=== PATIENT | male | born 1940 | race Caucasian/White ===

== ENCOUNTER → 2017-05-28 09:35 | Outpatient (CLI) | payer MEDICARE, OTHER, SELFPAY ==
[2017-05-28 13:35] LABS: ALB/GLOB Ratio 1.1 RATIO (0.9-2.4); AST(SGOT) 20 U/L (15-37); Alanine Aminotransfer ALT/SGPT 30 U/L (16-61); Albumin, Serum 3.6 g/dL (3.2-5.0); Alkaline Phosphatase 59 U/L (45-117); Anion Gap 8 (5-15); BUN 14 mg/dL (7-18); BUN/Creat Ratio 16.6 RATIO (10-20); Calcium,Total 8.7 mg/dL (8.5-10.1); Chloride 110 mmol/L (98-107); Creatinine, Serum 0.84 mg/dL (0.70-1.30); EST Glomerular Filtration Rate 95 mL/min (>60); Est Glom Filt Rate - Afr Amer 114 mL/min (>60); Globulin 3.3 g/dL (2.2-4.2); Glucose 147 mg/dL (74-106); Potassium 4.1 mmol/L (3.5-5.1); Protein, Total 6.9 g/dL (6.4-8.2); Sodium Level 145 mmol/L (136-145); Thyroid Stim Hormone (TSH) 1.59 uIU/mL (0.358-3.74)
[2017-05-28 14:29] LABS: Basophil% 0.8 % (0-1); Differential Indicated SCAN CRITERIA MET; Eosinophils% 2.2 % (0-5); Hematocrit 40.2 % (40-54); Hemoglobin 12.4 g/dl (13.0-16.5); Lymphocyte % 24.6 % (19-41); Mean Corp Hgb Conc 30.8 g/gl (32-36); Mean Corpuscular Volume 87.6 fL (80-94); Monocyte% 9.6 % (0-10); Neutrophil % 62.7 % (47-70); POSITIVE COUNT NO; POSITIVE DIFFERENTIAL NO; POSITIVE MORPHOLOGY YES; Platelet Count 306 K/mm3 (150-450); RBC Distribution Width CV 16.6 % (11.6-14.6); RBC Distribution Width SD 53.5 fl (35.1-43.9); Red Blood Count 4.59 M/mm3 (4.6-6.2); White Blood Count 10.5 K/mm3 (4.4-11.0)
[2017-05-28 14:30] LABS: Absolute Lymphocyte Count 2.58 X10^3/ul (0.83-4.51); Absolute Neutrophil Count 6.6 X10^3/uL (2.0-7.7); Acanthocytes 2+; Basophil# 0.08 X10^3/uL; Eosinophil# 0.22 X10^3/uL; Lymphocyte # 2.58 X10^3/ul (4.0); Monocyte# 1.01 X10^3/uL; Neutrophil # 6.58 X10^3/uL (2.7-7.7); Platelet Estimate ADEQUATE (ADEQ); Platelet Morphology LARGE
== END ==
PROVIDERS: Family Provider Family Medicine Geriatric Medicine; PCP Family Medicine Geriatric Medicine; Visit Provider Family Medicine Geriatric Medicine
DX: E11.9 Type 2 diabetes mellitus without complications (principal); I10 Essential (primary) hypertension; E55.9 Vitamin D deficiency, unspecified
CPT/HCPCS: 36415; 80053; 82306; 84443; 85025

== ENCOUNTER → 2017-12-11 12:09 | Outpatient (CLI) | payer MEDICARE, OTHER, SELFPAY ==
[2017-12-11 13:01] LABS: Vitamin D,25 Hydroxy 23.1 ng/mL (29.95-100.01)
[2017-12-11 13:05] LABS: ALB/GLOB Ratio 1.1 RATIO (0.9-2.4); AST(SGOT) 20 U/L (15-37); Alanine Aminotransfer ALT/SGPT 32 U/L (16-61); Albumin, Serum 3.6 g/dL (3.2-5.0); Alkaline Phosphatase 59 U/L (45-117); Anion Gap 11 (5-15); BUN 15 mg/dL (7-18); BUN/Creat Ratio 13.4 RATIO (10-20); Calcium,Total 8.8 mg/dL (8.5-10.1); Chloride 106 mmol/L (98-107); Creatinine, Serum 1.12 mg/dL (0.70-1.30); EST Glomerular Filtration Rate 68 mL/min (>60); Est Glom Filt Rate - Afr Amer 82 mL/min (>60); Globulin 3.4 g/dL (2.2-4.2); Glucose 156 mg/dL (74-106); Potassium 4.2 mmol/L (3.5-5.1); Sodium Level 145 mmol/L (136-145); Thyroid Stim Hormone (TSH) 2.37 uIU/mL (0.358-3.74)
[2017-12-11 14:02] LABS: Absolute Lymphocyte Count 1.84 X10^3/ul (0.83-4.51); Absolute Neutrophil Count 4.4 X10^3/uL (2.0-7.7); Basophil# 0.12 X10^3/uL; Basophil% 1.6 % (0-1); Eosinophil# 0.54 X10^3/uL; Hematocrit 39.3 % (40-54); Hemoglobin 12.4 g/dl (13.0-16.5); Lymphocyte # 1.84 X10^3/ul (4.0); Mean Corp Hgb Conc 31.6 g/gl (32-36); Mean Corpuscular Hgb 27.4 pg (27.0-32.0); Mean Corpuscular Volume 86.8 fL (80-94); Monocyte# 0.77 X10^3/uL; Neutrophil # 4.39 X10^3/uL (2.7-7.7); Neutrophil % 57.3 % (47-70); Platelet Count 316 K/mm3 (150-450); RBC Distribution Width CV 15.2 % (11.6-14.6); RBC Distribution Width SD 48.7 fl (35.1-43.9); Red Blood Count 4.53 M/mm3 (4.6-6.2); White Blood Count 7.7 K/mm3 (4.4-11.0)
[2017-12-11 14:03] LABS: Differential Indicated SCAN CRITERIA MET; POSITIVE COUNT NO; POSITIVE DIFFERENTIAL NO; POSITIVE MORPHOLOGY YES
[2017-12-11 14:04] LABS: Acanthocytes 3+; Ovalocyte RARE; Schistocytes 1+
[2017-12-12 12:34] LABS: Pathologist Review Reviewed
== END ==
PROVIDERS: Family Provider Family Medicine Geriatric Medicine; PCP Family Medicine Geriatric Medicine; Visit Provider Family Medicine Geriatric Medicine
DX: E11.9 Type 2 diabetes mellitus without complications (principal); I10 Essential (primary) hypertension; E55.9 Vitamin D deficiency, unspecified
CPT/HCPCS: 36415; 80053; 82306; 84443; 85025

== ENCOUNTER → 2018-06-13 08:59 | Outpatient (CLI) | payer MEDICARE, OTHER, SELFPAY ==
[2018-06-13 13:36] LABS: Absolute Neutrophil Count 4.8 X10^3/uL (2.0-7.7); Basophil% 1.3 % (0-1); Eosinophil# 0.38 X10^3/uL; Eosinophils% 5.1 % (0-5); Hematocrit 37.3 % (40-54); Hemoglobin 11.5 g/dl (13.0-16.5); Lymphocyte % 21.6 % (19-41); Mean Corp Hgb Conc 30.8 g/gl (32-36); Mean Corpuscular Hgb 25.7 pg (27.0-32.0); Mean Corpuscular Volume 83.4 fL (80-94); Mean Platelet Vol. 13.1 fl (6.2-12.0); Monocyte# 0.51 X10^3/uL; Monocyte% 6.9 % (0-10); Neutrophil # 4.82 X10^3/uL (2.7-7.7); Neutrophil % 65.1 % (47-70); Platelet Count 270 K/mm3 (150-450); RBC Distribution Width CV 16.1 % (11.6-14.6); Red Blood Count 4.47 M/mm3 (4.6-6.2); White Blood Count 7.4 K/mm3 (4.4-11.0)
[2018-06-13 13:37] LABS: Differential Indicated SCAN CRITERIA MET; POSITIVE COUNT NO; POSITIVE DIFFERENTIAL NO; POSITIVE MORPHOLOGY YES
[2018-06-13 13:54] LABS: Vitamin D,25 Hydroxy 35.3 ng/mL (29.95-100.01)
[2018-06-13 14:08] LABS: AST(SGOT) 23 U/L (15-37); Alanine Aminotransfer ALT/SGPT 30 U/L (16-61); Albumin, Serum 3.5 g/dL (3.2-5.0); Alkaline Phosphatase 63 U/L (45-117); Anion Gap 7 (5-15); BUN 15 mg/dL (7-18); BUN/Creat Ratio 15.2 RATIO (10-20); Calcium,Total 8.4 mg/dL (8.5-10.1); Chloride 107 mmol/L (98-107); Creatinine, Serum 0.99 mg/dL (0.70-1.30); EST Glomerular Filtration Rate 78 mL/min (>60); Est Glom Filt Rate - Afr Amer 95 mL/min (>60); Globulin 3.4 g/dL (2.2-4.2); Glucose 156 mg/dL (74-106); Potassium 3.8 mmol/L (3.5-5.1); Protein, Total 6.9 g/dL (6.4-8.2); Sodium Level 140 mmol/L (136-145); Thyroid Stim Hormone (TSH) 1.61 uIU/mL (0.358-3.74)
[2018-06-16 14:41] LABS: Pathologist Review Reviewed
== END ==
PROVIDERS: Family Provider Family Medicine Geriatric Medicine; PCP Family Medicine Geriatric Medicine; Visit Provider Family Medicine Geriatric Medicine
DX: E11.9 Type 2 diabetes mellitus without complications (principal); E55.9 Vitamin D deficiency, unspecified; I10 Essential (primary) hypertension
CPT/HCPCS: 36415; 80053; 82306; 84443; 85025

== ENCOUNTER 2018-06-18 12:06 | Emergency (ER) | payer MEDICARE, OTHER, SELFPAY ==
[2018-06-18] VITALS (12 sets, daily range): BP systolic 123–173; BP diastolic 71–97; PULSE 105–141; RESP 12–29; TEMP 35.6–36.2; O2SAT 90–100; BMI 26.1
--- NOTE | 2018-06-18 12:10 | NURSING ---
NO OLD EKGS
--- NOTE | 2018-06-18 12:16 | EKG12_ITS ---
Test Reason : SOB Blood Pressure : / mmHG Vent. Rate : 128 BPM Atrial Rate : 127 BPM P-R Int : 000 ms QRS Dur : 116 ms QT Int : 306 ms P-R-T Axes : 000 013 203 degrees QTc Int : 446 ms Atrial fibrillation with rapid ventricular response with premature ventricular or aberrantly conducte d complexes Incomplete left bundle branch block Marked ST abnormality, possible inferior subendocardial injury Abnormal ECG Confirmed by TAVON HAMILTON, EDWIN ([id number]), material expeditor LEONARDO BACA ([id number]) on 06/19/2018 1:10:49 PM Referred By: MANNY Confirmed By:EDWIN MONTES DE OCA MD
--- NOTE | 2018-06-18 12:16 | RAD_ITS ---
STUDY: X-RAY CHEST REASON FOR EXAM: Male, 78 years old. Patient was found unresponsive. TECHNIQUE: Single AP portable view of the chest. COMPARISON: Comparison is made with prior study dated December 01, 2014. FINDINGS: An endotracheal tube is in situ. The tip is at 3.7 cm proximal to the patrick. An orogastric tube is seen with the tip below the left hemidiaphragm. EKG electrodes are seen. Airspace disease is seen in the left hemithorax with the focal airspace disease in the right perihilar regions. This is suggestive of asymmetrical pulmonary edema. There is no demonstrated pleural abnormality. There is moderate cardiac enlargement. Normal mediastinum and casa. Normal visualized pulmonary arteries. There is atherosclerotic calcification of the aortic arch with tortuosity. There are diffuse degenerative changes of the visualized thoracic spine. Normal visualized ribs, clavicles, and shoulders. There is no demonstrated abnormality of the visualized soft tissue structures of the upper abdomen. RAD/Chest 1 View (Portable) IMPRESSION: Findings suggestive of asymmetrical pulmonary edema. The tip of the endotracheal tube is at 3.7 cm proximal to the patrick. Electronically Signed: Jasper Smith, at 12:58 EDT , Service support ,
--- NOTE | 2018-06-18 12:16 | CT_ITS ---
STUDY: CT BRAIN WITHOUT CONTRAST REASON FOR EXAM: Male, 78 years old. Mental status changes. History of remote cerebral aneurysm. RADIATION DOSAGE (If Supplied By Facility): CTDIvol = ( 60.81 ) mGy, DLP = ( 1067.08 ) mGycm TECHNIQUE: Transaxial CT imaging of the brain was performed without administration of intravenous contrast material. Individualized dose optimization techniques were used for this CT. COMPARISON: No relevant priors. FINDINGS: Normal soft tissue structures. Prior right frontoparietal craniotomy. Normal size ventricles and extra-axial spaces for the patient's age. There is evidence of encephalomalacia along the inferior aspect of the left and right frontal lobes worse on the left side. Streak artifact from a vascular aneurysmal clip is seen in the right side of the [place] with the dense calcific material most likely similar to prior surgery. There is evidence of a cavum septum pellucidum. Normal basal ganglia and thalami. Normal brainstem. Normal cerebellum. There is no intracranial hemorrhage. There are no findings of an acute ischemic infarction. Normal visualized paranasal sinuses. CT/Brain/Head without Contrast IMPRESSION: Status post aneurysmal clipping along the right side of the [place] with resultant encephalomalacia along the base of both frontal lobes worse on the left side. Electronically Signed: Jasper Smith, at 13:30 EDT , Service support ,
[2018-06-18 12:21] LABS: Bedside Glucose 261 mg/dL (70-110)
[2018-06-18] MEDS: Etomidate 20 MG/10 ML Vial IV (12:26)
[2018-06-18] MEDS: Rocuronium Bromide 50 MG/5 ML Vial 80 MG IV (12:30)
[2018-06-18] MEDS: 0.9% Normal Saline 1,000 ML 150 ML IV (12:31)
[2018-06-18] MEDS: LORazepam 2 MG/ML Syringe IV (12:35)
[2018-06-18 13:03] LABS: Absolute Lymphocyte Count 1.64 X10^3/ul (0.83-4.51); Absolute Neutrophil Count 21.5 X10^3/uL (2.0-7.7); Basophil# 0.09 X10^3/uL; Basophil% 0.4 % (0-1); Hematocrit 42.4 % (40-54); International Normalized Ratio 1.1; Lymphocyte # 1.64 X10^3/ul (4.0); Lymphocyte % 6.4 % (19-41); Mean Corp Hgb Conc 30.7 g/gl (32-36); Mean Corpuscular Hgb 26.1 pg (27.0-32.0); Mean Corpuscular Volume 85.1 fL (80-94); Monocyte# 2.25 X10^3/uL; Monocyte% 8.8 % (0-10); Neutrophil # 21.47 X10^3/uL (2.7-7.7); Neutrophil % 84.2 % (47-70); Platelet Count 346 K/mm3 (150-450); RBC Distribution Width CV 16.4 % (11.6-14.6); RBC Distribution Width SD 51.6 fl (35.1-43.9); Red Blood Count 4.98 M/mm3 (4.6-6.2); White Blood Count 25.5 K/mm3 (4.4-11.0)
[2018-06-18 13:04] LABS: Partial Thromboplast Time 23.5 Seconds (24.1-36.2)
[2018-06-18 13:05] LABS: POSITIVE COUNT NO; POSITIVE DIFFERENTIAL YES
[2018-06-18 13:06] LABS: Differential Indicated SCAN CRITERIA MET; POSITIVE MORPHOLOGY YES
[2018-06-18 13:07] LABS: Absolute Nucleated RBC Count 0.02 10^3/uL (0-5); NRBC Flagged by Analyzer 0.1 % (0-5)
[2018-06-18 13:18] LABS: Lactic Acid 10.4 mmol/L (0.4-2.0)
[2018-06-18 13:22] LABS: AST(SGOT) 31 U/L (15-37); Alanine Aminotransfer ALT/SGPT 31 U/L (16-61); Albumin, Serum 3.7 g/dL (3.2-5.0); Alkaline Phosphatase 72 U/L (45-117); Anion Gap 17 (5-15); BUN 16 mg/dL (7-18); BUN/Creat Ratio 11.9 RATIO (10-20); Bilirubin, Direct 0.22 mg/dL (0.00-0.30); Calcium,Total 8.5 mg/dL (8.5-10.1); Chloride 105 mmol/L (98-107); Creatinine, Serum 1.34 mg/dL (0.70-1.30); EST Glomerular Filtration Rate 55 mL/min (>60); Est Glom Filt Rate - Afr Amer 67 mL/min (>60); Globulin 3.7 g/dL (2.2-4.2); Glucose 259 mg/dL (74-106); Lipase 72 U/L (73-393); Potassium 3.4 mmol/L (3.5-5.1); Protein, Total 7.4 g/dL (6.4-8.2); Sodium Level 140 mmol/L (136-145)
[2018-06-18 13:26] LABS: Acanthocytes 2+; Platelet Estimate ADEQUATE (ADEQ); Schistocytes 1+
[2018-06-18 13:27] LABS: Anisocytosis 2+
[2018-06-18] MEDS: 0.9% Normal Saline 1,000 ML 1000 ML IV ×2 (13:35→14:29)
--- NOTE | 2018-06-18 13:42 | CT_ITS ---
STUDY: CTA OF THE BRAIN REASON FOR EXAM: Male, 78 years old. History of CVA. Prior aneurysmal clipping. RADIATION DOSAGE (If Supplied By Facility): CTDIvol = ( 28.48 ) mGy, DLP = ( 782.92 ) mGycm TECHNIQUE: CT angiography was performed with a multi-detector CT scanner. Data acquisition was obtained from the skull base through the vertex following intravenous administration of 100 IV Isovue 370. MIP images were reconstructed from the axial data set. Post-processing of the angiographic images was performed, with multiplanar reformation and 3D reconstruction. Individualized dose optimization techniques were used for this CT. COMPARISON: None. FINDINGS: The patient is status post right frontoparietal craniotomy. Normal bilateral petrous carotid arteries. There is calcified plaque formation of the right cavernous carotid artery, without a cross-sectional luminal stenosis. There is calcified plaque formation of the left cavernous carotid artery, without a cross-sectional luminal stenosis. 2 aneurysmal clips are seen in the right anterior aspect of the [place]. This is in the region of the right anterior communicating artery. There is non-visualization of the right A1 segment of the anterior cerebral arteries consistent with either aplastic development or an occlusion. Normal left A1 segments of the anterior cerebral artery. There is non-visualization of the anterior communicating artery (ACOM). Normal bilateral A2 segments of the anterior cerebral arteries. There is abrupt occlusion of the right middle cerebral artery just distal to its origin with poor visualization of the branches of the sylvian fissure. There is irregularity and narrowing of the left middle cerebral artery suggestive of atherosclerotic changes. Normal right posterior communicating artery (PCOM). Normal left posterior communicating artery (PCOM). Normal bilateral vertebral arteries. Normal basilar artery with a normal basilar bifurcation. The visualized bilateral superior cerebellar (SCA) arteries are normal. Normal bilateral P1, P2 and visualized P3 segments of the posterior cerebral arteries. There is no demonstrated aneurysm of the [place]. 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 Irregularity and narrowing of the left middle cerebral artery suggestive of atherosclerotic changes. Electronically Signed: Jasper Smith, at 15:01 EDT , Service support , STUDY: CTA NECK WITH CONTRAST REASON FOR EXAM: Male, 78 years old. CVA. RADIATION DOSAGE (If Supplied By Facility): CTDIvol = ( 28.48 ) mGy, DLP = ( 782.92 ) mGycm TECHNIQUE: CT angiography with multi-detector data acquisition was performed from the aortic arch to the skull base following intravenous administration of 100 IV Isovue 370. MIP images were reconstructed from the axial data set. Post-processing of the angiographic images was performed, with multiplanar reformation and 3D reconstruction. Individualized dose optimization techniques were used for this CT. COMPARISON: None. FINDINGS: An endotracheal tube is seen within the trachea. Airspace disease in both upper lobes worse on the left side. AORTIC ARCH: There is atherosclerotic calcific plaque formation of the aortic arch and great vessels arising from the aortic arch, without a hemodynamically significant stenosis. There is a bovine origin of the great vessels with a common origin of the brachiocephalic and left common carotid artery. Normal origin of the left subclavian artery. RIGHT CAROTID ARTERIES: Normal right common carotid artery (CCA). Normal right common carotid bulb. There is extensive atherosclerotic plaque formation of the origin of the right internal carotid artery with an estimated stenosis of greater than 70%. Normal visualized cervical portion of the right internal carotid artery. Normal origin of the right external carotid artery (ECA). LEFT CAROTID ARTERIES: Normal left common carotid artery (CCA). Normal left common carotid bulb. There is mild atherosclerotic plaque formation of the origin of the left internal carotid artery with less than 50% cross sectional diameter stenosis. Normal visualized cervical portion of the left internal carotid artery. Normal origin of the left external carotid artery (ECA). VERTEBRAL ARTERIES: Normal bilateral vertebral arteries. 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 Electronically Signed: Jasper Smith, at 15:03 EDT , Service support ,
--- NOTE | 2018-06-18 13:42 | CT_ITS ---
STUDY: CTA OF THE BRAIN REASON FOR EXAM: Male, 78 years old. History of CVA. Prior aneurysmal clipping. RADIATION DOSAGE (If Supplied By Facility): CTDIvol = ( 28.48 ) mGy, DLP = ( 782.92 ) mGycm TECHNIQUE: CT angiography was performed with a multi-detector CT scanner. Data acquisition was obtained from the skull base through the vertex following intravenous administration of 100 IV Isovue 370. MIP images were reconstructed from the axial data set. Post-processing of the angiographic images was performed, with multiplanar reformation and 3D reconstruction. Individualized dose optimization techniques were used for this CT. COMPARISON: None. FINDINGS: The patient is status post right frontoparietal craniotomy. Normal bilateral petrous carotid arteries. There is calcified plaque formation of the right cavernous carotid artery, without a cross-sectional luminal stenosis. There is calcified plaque formation of the left cavernous carotid artery, without a cross-sectional luminal stenosis. 2 aneurysmal clips are seen in the right anterior aspect of the [place]. This is in the region of the right anterior communicating artery. There is non-visualization of the right A1 segment of the anterior cerebral arteries consistent with either aplastic development or an occlusion. Normal left A1 segments of the anterior cerebral artery. There is non-visualization of the anterior communicating artery (ACOM). Normal bilateral A2 segments of the anterior cerebral arteries. There is abrupt occlusion of the right middle cerebral artery just distal to its origin with poor visualization of the branches of the sylvian fissure. There is irregularity and narrowing of the left middle cerebral artery suggestive of atherosclerotic changes. Normal right posterior communicating artery (PCOM). Normal left posterior communicating artery (PCOM). Normal bilateral vertebral arteries. Normal basilar artery with a normal basilar bifurcation. The visualized bilateral superior cerebellar (SCA) arteries are normal. Normal bilateral P1, P2 and visualized P3 segments of the posterior cerebral arteries. There is no demonstrated aneurysm of the [place]. 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 Irregularity and narrowing of the left middle cerebral artery suggestive of atherosclerotic changes. Electronically Signed: Jasper Smith, at 15:01 EDT , Service support , STUDY: CTA NECK WITH CONTRAST REASON FOR EXAM: Male, 78 years old. CVA. RADIATION DOSAGE (If Supplied By Facility): CTDIvol = ( 28.48 ) mGy, DLP = ( 782.92 ) mGycm TECHNIQUE: CT angiography with multi-detector data acquisition was performed from the aortic arch to the skull base following intravenous administration of 100 IV Isovue 370. MIP images were reconstructed from the axial data set. Post-processing of the angiographic images was performed, with multiplanar reformation and 3D reconstruction. Individualized dose optimization techniques were used for this CT. COMPARISON: None. FINDINGS: An endotracheal tube is seen within the trachea. Airspace disease in both upper lobes worse on the left side. AORTIC ARCH: There is atherosclerotic calcific plaque formation of the aortic arch and great vessels arising from the aortic arch, without a hemodynamically significant stenosis. There is a bovine origin of the great vessels with a common origin of the brachiocephalic and left common carotid artery. Normal origin of the left subclavian artery. RIGHT CAROTID ARTERIES: Normal right common carotid artery (CCA). Normal right common carotid bulb. There is extensive atherosclerotic plaque formation of the origin of the right internal carotid artery with an estimated stenosis of greater than 70%. Normal visualized cervical portion of the right internal carotid artery. Normal origin of the right external carotid artery (ECA). LEFT CAROTID ARTERIES: Normal left common carotid artery (CCA). Normal left common carotid bulb. There is mild atherosclerotic plaque formation of the origin of the left internal carotid artery with less than 50% cross sectional diameter stenosis. Normal visualized cervical portion of the left internal carotid artery. Normal origin of the left external carotid artery (ECA). VERTEBRAL ARTERIES: Normal bilateral vertebral arteries. 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 Electronically Signed: Jasper mSith, at 15:03 EDT , Service support ,
--- NOTE | 2018-06-18 13:44 | ED.RN ---
Addendum entered by Yin Sauceda 06/18/18 15:37: soft restraints placed on wrists but not secured or used. pt sedated and does not require Original Note: 1226-etomidate 1228 et tube 7.5 21 at lip good cap willis ls 1230 saw administered 1240 - og placed aus. and residual. 1245 trent placed. soft retraints to wrists
[2018-06-18 13:46] LABS: Allen Test POS; Base Excess -10 mmol/L (-2 to +2); Bicarbonate 19.7 mmol/L (22-26); Blood Gas Specimen Type ART; FI02 100; Mode A-C; O2 Delivery Device Vent; PEEP 5; PO2 183 mmHG (75-100); RR 12; SITE R Radial; SO2 99 % (95-99); Time Given 1330; Total Carbon Dioxide 22 mmol/L; Vt 450; pH 7.09 (7.35-7.45)
[2018-06-18 13:47] LABS: Color, Urine Yellow (Yellow); Glucose, Dipstick 250 mg/dl (Normal); Ketone-Dipstick 50 mg/dl (Negative); Leukocyte Esterase-Dipstick Negative /ul (Negative); Nitrite-Dipstick Negative (Negative); Occult Blood-Urine 25 /ul (Negative); Protein-Dipstick 30 mg/dl (Negative); Specific Gravity, Urine 1.025 (1.002-1.030); Urine Bilirubin Dipstick Negative (Negative); Urine Clarity Sl. Cloudy (Clear); Urine Urobilinogen Normal (Normal)
[2018-06-18 13:56] LABS: Bacteria RARE /hpf (None Seen); Hyaline Cast 0-5 SEEN /lpf (0-5); Mucous, Urine 1+ /hpf (<or=2+); Red Blood Cells-Urine 0-5 SEEN /hpf (0-5); Squamous Epithelial Cells - UA 5-10 SEEN /hpf (0-5); White Blood Cells 0-5 SEEN /hpf (0-5)
--- NOTE | 2018-06-18 14:28 | CPS ---
Critical results read to Steffany HAMILTON.
--- NOTE | 2018-06-18 14:40 | ED.VISSUMM ---
- ER Visit Summary Date of Service: 06/18/18 Chief Complaint: Weakness History of Present Illness: The patient is a 78 M brought in by EMS with weakness and respiratory distress. Per daughter patient has not been feeling well for the past several days. He went to bed around 11 PM last night. Daughter heard the patient up to the bathroom around 630 this morning. When he did not come down this morning she went to check on him and found him on the floor between his bed and nightstand. He arrives here shortly afternoon. Patient reported he has a history of diabetes, hypertension, and high cholesterol. He does have a cancer history and daughter states recent blood work showed that his red blood cells looked funny. He is to follow-up with engineer third assistant. Physical Examination: Blood pressure is 157/84, temperature 97.2, heart rate 105, respiratory rate 28, pulse ox 93% on nonrebreather. Patient is sitting upright in the bed. He is tachypneic. Heart rate is irregular and tachycardic. Lungs sounds with rhonchi throughout. Abdomen is soft nontender. Quick neuro exam reveals patient will moan to his name. His left arm is flaccid. He will pull back left leg pain. He will move right arm and right leg. Test Results: EKG is A. fib at [address] depression. Patient has no known history of A. fib. CT head shows that he is status post aneurysm clip along the right side of the [place]. There is encephalomalacia on the base of both frontal lobes, worse on the left. Chest x-ray shows large airspace disease in the left lung. ET tube is 3.7 cm proximal to the patrick. CBC was a white count of 25.5 with 84% neutrophils. Chemistry studies reveal potassium 3.4, bicarb 18, creatinine 1.34. Glucose is 259 and anion gap is 17. Lactic acid is 10.4. LFTs and lipase normal. Troponin is 0.333. Emergency Department Course and Treatment: Due to concern about patient not protecting airway, decision was made to electively intubate the patient shortly after his arrival. Family consented and stayed in the room during procedure. Patient was given 20 mg of etomidate. Cords were directly visualized with a 4 MAC blade. A 7.5 ET tube was passed. Good end-tidal CO2 changes noted. Lungs were suctioned with thick white sputum. once chest x-ray was visualized, patient was given Unasyn they believe this airspace disease is secondary to aspiration. Patient was given 30 cc/kg IV fluid bolus given his severe lactic acidosis. Patient was sent for CT head as well as CTA of the head and neck. I spoke with Dr. Robertson who was watching for his images. He reports a large proximal right M1 occlusion. He recommended transfer immediately for clot retrieval. This was discussed with family and they would like to go to [facility]. I spoke with Dr. Montanez from [facility]. Dr. Montanez spoke with the daughter on the phone. At this time they cannot ensure the aneurysm clips are safe for MRI, so patient will go to the ED at [facility] for repeat CT while they clarify whether they can take him to the MRI scanner. Helicopter has already launched. Family's been updated throughout. Treatment Plan: [] Disposition: Transfer Impression: 1. Acute right MCA infarct 2. New onset A. fib with RVR 3. Aspiration pneumonia 4. Sepsis 5. Respiratory failure Addendum: Prior to patient transfer, formal CTA reports did return. There is an abrupt cutoff in the right proximal M1 consistent with clot. There is also a proximal right ICA occlusion greater than 70%. This information was verbally relayed to the transfer team. This note was generated with [employer] dictation software. It may contain incorrect words, spelling, and punctuation that were not noted in review of the chart prior to signing ED Disposition - Plan for ED Patient: Referrals: Gerardo Fernandez Chi, MD [Primary Care Provider] -
--- NOTE | 2018-06-18 14:45 | NURSING ---
[facility]. ETA IS 25 MIN
--- NOTE | 2018-06-18 14:50 | ED.DCSUM_ITS ---
- ER Visit Summary Date of Service: 06/18/18 Chief Complaint: Weakness History of Present Illness: The patient is a 78 M brought in by EMS with weakness and respiratory distress. Per daughter patient has not been feeling well for the past several days. He went to bed around 11 PM last night. Daughter heard the patient up to the bathroom around 630 this morning. When he did not come down this morning she went to check on him and found him on the floor between his bed and nightstand. He arrives here shortly afternoon. Patient reported he has a history of diabetes, hypertension, and high cholesterol. He does have a cancer history and daughter states recent blood work showed that his red blood cells looked funny. He is to follow-up with hot metal charger. Physical Examination: Blood pressure is 157/84, temperature 97.2, heart rate 105, respiratory rate 28, pulse ox 93% on nonrebreather. Patient is sitting upright in the bed. He is tachypneic. Heart rate is irregular and tachycardic. Lungs sounds with rhonchi throughout. Abdomen is soft nontender. Quick neuro exam reveals patient will moan to his name. His left arm is flaccid. He will pull back left leg pain. He will move right arm and right leg. Test Results: EKG is A. fib at [address] depression. Patient has no known history of A. fib. CT head shows that he is status post aneurysm clip along the right side of the [place]. There is encephalomalacia on the base of both frontal lobes, worse on the left. Chest x-ray shows large airspace disease in the left lung. ET tube is 3.7 cm proximal to the patrick. CBC was a white count of 25.5 with 84% neutrophils. Chemistry studies reveal potassium 3.4, bicarb 18, creatinine 1.34. Glucose is 259 and anion gap is 17. Lactic acid is 10.4. LFTs and lipase normal. Troponin is 0.333. Emergency Department Course and Treatment: Due to concern about patient not protecting airway, decision was made to electively intubate the patient shortly after his arrival. Family consented and stayed in the room during procedure. Patient was given 20 mg of etomidate. Cords were directly visualized with a 4 MAC blade. A 7.5 ET tube was passed. Good end-tidal CO2 changes noted. Lungs were suctioned with thick white sputum. once chest x-ray was visualized, patient was given Unasyn they believe this airspace disease is secondary to aspiration. Patient was given 30 cc/kg IV fluid bolus given his severe lactic acidosis. Patient was sent for CT head as well as CTA of the head and neck. I spoke with Dr. Robertson who was watching for his images. He reports a large proximal right M1 occlusion. He recommended transfer immediately for clot retrieval. This was discussed with family and they would like to go to [facility]. I spoke with Dr. Montanez from [facility]. Dr. Montanez spoke with the daughter on the phone. At this time they cannot ensure the aneurysm clips are safe for MRI, so patient will go to the ED at [facility] for repeat CT while they clarify whether they can take him to the MRI scanner. Helicopter has already launched. Family's been updated throughout. Treatment Plan: [] Disposition: Transfer Impression: 1. Acute right MCA infarct 2. New onset A. fib with RVR 3. Aspiration pneumonia 4. Sepsis 5. Respiratory failure Addendum: Prior to patient transfer, formal CTA reports did return. There is an abrupt cutoff in the right proximal M1 consistent with clot. There is also a proximal right ICA occlusion greater than 70%. This information was verbally r elayed to the transfer team. This note was generated with [employer] dictation software. It may contain incorrect words, spelling, and punctuation that were not noted in review of the chart prior to signing ED Disposition - Plan for ED Patient: Referrals: Gerardo Fernandez Chi, MD [Primary Care Provider] -
--- NOTE | 2018-06-18 15:52 | ED.RN ---
report to [facility] rn.
[2018-06-18 16:40] LABS: Reflex Lactate? Y
[2018-06-19 14:00] LABS: Pathologist Review Reviewed
== END 2018-06-18 15:34 | disposition short-term general hospital (02) ==
LOC: ED 13:27
PROVIDERS: Emergency Provider Emergency Medicine; Family Provider Family Medicine Geriatric Medicine; PCP Family Medicine Geriatric Medicine
DX: A41.9 Sepsis, unspecified organism (principal); I63.511 Cerebral infarction due to unspecified occlusion or stenosis of right middle cerebral artery; I48.91 Unspecified atrial fibrillation; J69.0 Pneumonitis due to inhalation of food and vomit; J96.90 Respiratory failure, unspecified, unspecified whether with hypoxia or hypercapnia; G93.89 Other specified disorders of brain; Z86.79 Personal history of other diseases of the circulatory system; E11.9 Type 2 diabetes mellitus without complications; I10 Essential (primary) hypertension; E78.00 Pure hypercholesterolemia, unspecified
CPT/HCPCS: 31500; 36600; 70450; 70496; 70498; 71045; 80048; 80076; 81001; 82803; 82962; 83605; 83690; 84484; 85025; 85610; 85730; 87040; 93005; 94002; 99251; 99285; J7030; Q9967; A4216; G0463; J0295

== ENCOUNTER 2018-07-07 18:10 | Inpatient (IN) | payer MEDICARE, OTHER, SELFPAY ==
[2018-06-18 12:08] VITALS: BMI 26.1
[2018-07-07 18:29] VITALS: BP 118/76; PULSE 81; RESP 26; TEMP 37.3; O2SAT 94; BMI 30.4; BMI 30.5
--- NOTE | 2018-07-07 18:29 | NURSING ---
Patient admitted to room 13 from [facility] via cot. Family at bedside. Patient is not responsive to verbal stimuli, responsive to physical/painful stimuli.
--- NOTE | 2018-07-07 21:00 | NURSING ---
Per Dr. Munguia, if bladder scan is >600ml, insert trent.
[2018-07-07] MEDS: Menthol/Lanolin/Calamine/Znox 113 GM Tube 1 APPLIC TOPICAL (21:15)
[2018-07-07] MEDS: NYSTATIN 500,000 UNIT/5 ML UDC 500000 UNIT PO (21:18)
[2018-07-07 21:30] VITALS: O2SAT 99
--- NOTE | 2018-07-07 21:38 | RAD_ITS ---
STUDY: X-RAY - ABDOMEN/PELVIS REASON FOR EXAM: Male, 78 years old. Tube placement TECHNIQUE: Single AP view of the abdomen / pelvis. COMPARISON: None. FINDINGS: There is an enteric tube noted with its tip in the stomach. There are multiple dilated loops of small and large bowel in the visualized abdomen. This may be due to ileus or obstruction and further evaluation with CT is recommended. The visualized osseous structures are within normal limits. RAD/Abdomen Single View (Portable) IMPRESSION: Enteric tube tip in the stomach. Dilated loops of small and large bowel in the visualized abdomen. This may be due to ileus or obstruction and further evaluation with CT is recommended. Electronically Signed: Mitchell Moore, at 22:08 EDT Tel , Service support ,
--- NOTE | 2018-07-07 22:30 | NURSING ---
Per policy, ordered KUB to verify placement of NG. Report read to Dr. Munguia, and new order to not administer anything through NG at this time. New order for KCl 20mEq in D5NS @ 100ml/hr and humalog-medium S.S. with blood sugar checks Q6H. Updated daughter in law, via phone call.
[2018-07-07 22:31] LABS: Bedside Glucose 85 mg/dL (70-110)
[2018-07-08 00:56] LABS: Bedside Glucose 95 mg/dL (70-110)
[2018-07-08] MEDS: Menthol/Lanolin/Calamine/Znox 113 GM Tube 1 APPLIC TOPICAL ×3 (05:42→19:51)
[2018-07-08] MEDS: Lidocaine 5% Patch 1 PATCH TOPICAL (05:42)
[2018-07-08] MEDS: Enoxaparin 40 MG/0.4 ML Syringe SC (05:43)
[2018-07-08] MEDS: NYSTATIN 500,000 UNIT/5 ML UDC 500000 UNIT PO ×4 (05:43→21:17)
[2018-07-08 06:00] VITALS: BP 165/43; PULSE 61; RESP 24; TEMP 36.8; O2SAT 100
[2018-07-08 06:10] LABS: Bedside Glucose 146 mg/dL (70-110)
[2018-07-08 06:24] LABS: Absolute Lymphocyte Count 1.72 X10^3/ul (0.83-4.51); Absolute Neutrophil Count 13.6 X10^3/uL (2.0-7.7); Basophil# 0.09 X10^3/uL; Basophil% 0.5 % (0-1); Eosinophils% 1.7 % (0-5); Hematocrit 36.8 % (40-54); Hemoglobin 11.3 g/dl (13.0-16.5); Lymphocyte # 1.72 X10^3/ul (4.0); Mean Corp Hgb Conc 30.7 g/gl (32-36); Mean Corpuscular Hgb 25.7 pg (27.0-32.0); Mean Corpuscular Volume 83.8 fL (80-94); Mean Platelet Vol. 13.2 fl (6.2-12.0); Monocyte# 1.38 X10^3/uL; Neutrophil # 13.64 X10^3/uL (2.7-7.7); Neutrophil % 79.6 % (47-70); Platelet Count 530 K/mm3 (150-450); RBC Distribution Width SD 53.6 fl (35.1-43.9); Red Blood Count 4.39 M/mm3 (4.6-6.2); White Blood Count 17.2 K/mm3 (4.4-11.0)
[2018-07-08 06:30] LABS: POSITIVE COUNT NO; POSITIVE DIFFERENTIAL NO; POSITIVE MORPHOLOGY NO
[2018-07-08 06:42] LABS: Anion Gap 2 (5-15); BUN 21 mg/dL (7-18); BUN/Creat Ratio 38.9 RATIO (10-20); Calcium,Total 8.1 mg/dL (8.5-10.1); Chloride 109 mmol/L (98-107); Creatinine, Serum 0.54 mg/dL (0.70-1.30); EST Glomerular Filtration Rate 157 mL/min (>60); Est Glom Filt Rate - Afr Amer 190 mL/min (>60); Estimated Creatinine Clearance 62.84 ml/min; Glucose 109 mg/dL (74-106); Potassium 4.3 mmol/L (3.5-5.1); Sodium Level 141 mmol/L (136-145)
[2018-07-08] MEDS: Tuberculin,Purif.prot.deriv. 50 TU/ML Vial 5 ML ID (08:56)
--- NOTE | 2018-07-08 10:37 | HP.PCM_ITS ---
Problem List (1) Chronic ischemic right MCA stroke Status: Chronic (2) Atrial fibrillation Status: Acute (3) H/O colon cancer, stage III Status: Acute (4) H/O malignant neoplasm of pancreas Status: Acute (5) HTN (hypertension) Status: Chronic (6) T2DM (type 2 diabetes mellitus) Status: Acute (7) Dysphagia following cerebral infarction Status: Acute (8) Chronic systolic CHF (congestive heart failure) Status: Chronic (9) Obesity (BMI 30.0-34.9) Status: Acute (10) Transaminitis Status: Acute History of Present Illness Date of Admission: 07/08/18 Chief Complaint: Debilitating and disabling right MCA stroke Patient unable to provide history and detail obtained from extensive review of medical records and chart from the [facility] The patient is a 78 year old M transferred from the [facility] main campus. Initially presented here on 06/18/18 with right MCA occlusive embolic stroke. Transferred to [facility] for possible embolectomy. Deemed not to be a candidate for any endovascular procedures and plan was to be managed conservatively. Hospital stay was complicated early on by development of severe cerebral edema with significant mass effect and early herniation. This necessitated a hemicraniectomy for surgical decompression and this seemed to improve things. Presentation also complicated early on by aspiration pneumonia, respiratory failure, and shock requiring pressors. Stroke complicated by dysphagia and dysphasia. Patient now completely dependent on total care. 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 Allergies No Known Allergies Allergy (Verified 06/18/18 12:14) Home Medications: Ambulatory Orders Medication Instructions Recorded Lisinopril [Zestril] 10 mg GT DAILY 12/06/14 Albuterol Aerosols [Ventolin 2.5 mg INHALATION Q4H PRN PRN 07/07/18 Aerosols] Apixaban [Eliquis] 5 mg GT BID 07/07/18 Aspir-Low 81 mg GT DAILY 07/07/18 Bisacodyl 10 mg RC DAILY PRN 07/07/18 Carvedilol 3.125 mg GT BID 07/07/18 Docusate Sodium [Stool Softener] 50 mg GT BID 07/07/18 Enoxaparin [Lovenox] 40 mg SC DAILY@0600 07/07/18 Insulin Glargine [Lantus (BKC)] 30 units SC DAILY 07/07/18 Lidocaine [Lidoderm Patch] 1 patch TOPICAL DAILY 07/07/18 Lisinopril [Prinivil] 10 mg PO 07/07/18 Melatonin/Pyridoxine HCl (B6) 2 each GT QHS 07/07/18 [Melatonin 3 mg Tablet] Nystatin 5 ml PO 4X/DAY 07/07/18 Polyethylene Glycol 3350 17 gm GT DAILY 07/07/18 Senna [Senokot] 1 tablet GT BID 07/07/18 Sodium Chloride For Inhalation 4 ml IH BID 07/07/18 [Sodium Chloride] Surgical History: cholecystectomy, colectomy, - - s/p clipping of anterior comm artery aneurysm 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 colectomy for stage III colon ca Lives: Alone, With Family Smoking Status: Current some day smoker Tobacco Use: Cigars, Chew, Pipe - *Family History Sibling Family History: Family History (Last Updated 07/08/18 @ 11:03 by Beatriz Munguia MD) Other Colon cancer Heart disease Review of Systems Eyes: Denies: Pain HEENT: Reports: Dysphasia Cardiovascular: Denies: Chest Pain Respiratory: Denies: Wheezing Gastrointestinal: Denies: Abdominal Pain Unable to obtain accurate/complete ROS d/t: due to dysphasia Comment: ROS limited by dysphasia VTE Information - Inpt Only VTE Present on Admission: Yes - lovenox VTE Mechan Device Prophylaxis: Thigh High DANILO Hose VTE Pharm Prophylaxis ordered?: Yes Patient Problems: Active and Suspected Problems Atrial fibrillation (Acute) H/O colon cancer, stage III (Acute) H/O malignant neoplasm of pancreas (Acute) T2DM (type 2 diabetes mellitus) (Acute) Dysphagia following cerebral infarction (Acute) Obesity (BMI 30.0-34.9) (Acute) Transaminitis (Acute) - Physical Exam General: Alert, Cooperative, No apparent distress, Disoriented, Lethargic HEENT: Atraumatic, PERRLA, EOMI, - - sutured and well healing craniotomy wound, no redness or drainage or malodor Oral: Dry Mucosa Neck: Supple Lungs: Clear to auscultation, Normal air movement, No rhonchi, No wheeze, No rales, Diminished - on the left, Periods of apnea - Rajat sol respiration Cardiovascular: Regular rate, Regular Rhythm, Normal S1, Normal S2, No murmurs, No Ectopic Activity Abdomen: - - abdomen distended in the upper half and tympanitic as well. Hyperactive bowel sounds. Non tender Extremities: No clubbing, No edema, - - muscle wasting especiallly on the left Skin: No rashes, - - stage I sacral decubitus Musculoskeletal: Muscle Wasting Lymphatic: No Cervical, Supraclavicular, or Inguinal Adenopathy Neurological: Facial Droop, Slurred Speech - hemiplegic on the left and increased tone. Moving the right spontaneously and purposefully Psych/Mental Status: Agitated, Impulsive, Restless Vital Signs Temp Pulse Resp BP Pulse Ox 98.2 F 61 24 H 165/43 H 100 07/08/18 06:00 07/08/18 06:00 07/08/18 06:00 07/08/18 06:00 07/08/18 06:00 Oxygen Delivery Method Room Air Weight: 93.6 kg Body Mass Index (BMI) 30.4 Finger Stick Blood Glucose 261 Laboratory Tests Past 24 Hrs 07/08/18 07/08/18 05:20 05:20 WBC 17.2 H RBC 4.39 L Hgb 11.3 L Hct 36.8 L MCV 83.8 MCH 25.7 L MCHC 30.7 L RDW 18.0 H RDW Differential 53.6 H Plt Count 530 H MPV 13.2 H Immature Gran % (Auto) 0.200 Neut % (Auto) 79.6 H Lymph % (Auto) 10.0 L [place] % (Auto) 8.0 Eos % (Auto) 1.7 Baso % (Auto) 0.5 Absolute Neuts (auto) 13.6 H Absolute Lymphs (auto) 1.72 Total Counted Not Reportable Sodium 141 Potassium 4.3 Chloride 109 H Carbon Dioxide 30.0 Anion Gap 2 L BUN 21 H Creatinine 0.54 L Estim Creat Clear Calc 62.84 Est GFR (MDRD) Af Amer 190 Est GFR (MDRD) Non-Af 157 BUN/Creatinine Ratio 38.9 H Glucose 109 H Calcium 8.1 L POC Glucose 07/08/18 07/08/18 07/07/18 06:00 00:49 22:28 POC Glucose 146 H 95 85 Assessment/Plan All Active Problems Atrial fibrillation (Acute) H/O colon cancer, stage III (Acute) H/O malignant neoplasm of pancreas (Acute) T2DM (type 2 diabetes mellitus) (Acute) Dysphagia following cerebral infarction (Acute) Obesity (BMI 30.0-34.9) (Acute) Transaminitis (Acute) 1. Acute embolic (cardioembolic) extensive/massive/debilitating and disabling right MCA stroke with dysphagia and dysphasia and left spastic hemiplegia. Will need extensive and prolonged post stroke rehab. 2. Colonic distention on AXR. Examination finding concordant. Will need to hold NGT feeds for now. CT abd/pelvis to r/o obstruction. 3. Dysphagia. Has corpak and this will be the primary means of nutrition for now. Speech therapy consulted and will continue swallowing evaluation and exercises. Hopefully this may improve and obviate the need for the Corpak 4. Aphasia. Speech therapy to treat as well 5. DVT prophylaxis. Continue with SQ Lovenox for now 6. HTN. Well controlled. Will continue with Lisinopril and Coreg 7. Atrial fibrillation. Cause of cardioembolic stroke. Eliquis to be started on 07/15/18. 8. T2DM. While npo will continue Lantus and ISS. On D5NS while NPO 9. Protein calorie malnutrition of moderate severity. Supplementation as prescribed 10. Obesity. Class I. 11. Wound care. To stage I sacral decubitus and right craniotomy wound. Will need Q2hr turning. 12. Chronic systolic CHF with EF of 37%. On BB and ACEI. Compensated at this time.
--- NOTE | 2018-07-08 12:51 | CASEMGMT ---
SW reviewed student social services counselor psychosocial assessment. MENDEZ Matamoros
--- NOTE | 2018-07-08 15:23 | NURSING ---
Talked with POMio, regarding CT results and new order for reglan. informed of palliative care consult. answered questions.
[2018-07-08 15:53] VITALS: BP 149/86; PULSE 73; RESP 30; TEMP 37.3; O2SAT 93
[2018-07-08 16:56] LABS: Bedside Glucose 115 mg/dL (70-110)
[2018-07-08] MEDS: Metoclopramide 10 MG/2 ML Vial IV ×2 (17:56→23:50)
[2018-07-08] MEDS: 0.9% NaCl Peripheral Flush Adult/Peds IV ×4 (21:17→23:55)
[2018-07-09 00:15] LABS: Bedside Glucose 73 mg/dL (70-110)
[2018-07-09 00:42] VITALS: BP 144/92; PULSE 118; RESP 26; TEMP 37; O2SAT 95
--- NOTE | 2018-07-09 00:43 | NURSING ---
Dr Munguia notified of vitals and blood sugar 73. Pt using accessory muscles to breath with periods of apnea. Per staff pt more difficult to arouse tonight vs last HS. N.O. place pt on 2L O2.
--- NOTE | 2018-07-09 01:41 | NURSING ---
Epstein catheter inserted at this time per order- bladder scan greater than 600cc. Pt tolerated procedure well. 700cc of clear, tea colored urine initially flowed into catheter bag, strong odor noted. Pt also noted to be moderately incontinent of urine. Upon changing pt, small smear of stool with blood noted to be in attends- hemorrhoids present. Will continue to monitor.
--- NOTE | 2018-07-09 06:00 | NURSING ---
In with patient this morning. Patient's eyes open, patient asked if he is in pain, patient states no. Patient then states I don't understand. This nurse explained to patient that he was in [facility]. Patient then went back to being unresponsive. Patient suctioned this time with lizzethker. Thick green mucous suctioned from patient's mouth. Patient given oral care at this time. Patient resting comfortably in bed at this time.
[2018-07-09] MEDS: Menthol/Lanolin/Calamine/Znox 113 GM Tube 1 APPLIC TOPICAL ×3 (06:04→21:07)
[2018-07-09] MEDS: Lidocaine 5% Patch 1 PATCH TOPICAL (06:05)
[2018-07-09] MEDS: Enoxaparin 40 MG/0.4 ML Syringe SC (06:06)
[2018-07-09] MEDS: NYSTATIN 500,000 UNIT/5 ML UDC 500000 UNIT PO ×4 (06:08→21:09)
[2018-07-09] MEDS: Metoclopramide 10 MG/2 ML Vial IV ×3 (06:13→16:57)
[2018-07-09] MEDS: 0.9% NaCl Peripheral Flush Adult/Peds IV ×3 (06:17→16:58)
[2018-07-09 06:41] VITALS: O2SAT 98
[2018-07-09 06:41] LABS: Bedside Glucose 106 mg/dL (70-110)
--- NOTE | 2018-07-09 09:17 | NURSING ---
Pt Blood sugar 106 this AM, Dr Munguia notified, wants pt to have lantus 30 units as ordered, ON IVF.
[2018-07-09 09:25] VITALS: O2SAT 97
[2018-07-09 11:05] VITALS: PULSE 87; O2SAT 95
--- NOTE | 2018-07-09 11:19 | NURSING ---
Pt repositioned to back, heels off bed, mouth care given. Remains NPO for now per order. IVF continue via LT FA. Pt opens eyes to verbal and painful stimuli. sat 95% on 2 liters via NC via mouth. No signs of distress at this time. Lt arm up on pillow d/t edema/flaccid.
[2018-07-09 11:35] LABS: Bedside Glucose 121 mg/dL (70-110)
--- NOTE | 2018-07-09 14:40 | NURSING ---
During katrina transfer from chair to bed after therapy, pt noted to have approx 10 sec apnea w/staring and no response. then eyes began blinking. Pt resting in bed, HOB elevated. Call light in reach. heel boots placed on feet. IVF infusing as ordered.
--- NOTE | 2018-07-09 14:52 | NURSING ---
verified appt regarding hospice/palliative care. Hospice nurse reported that sonAngus is to get back to them on 07/10
[2018-07-09 15:08] VITALS: BP 104/77; PULSE 96; RESP 30; TEMP 36.7; O2SAT 95
--- NOTE | 2018-07-09 16:25 | NURSING ---
pt with erma sol breathing at times with apnea. pt a mouth breather, RT notified, started on venti mask at 28%, sat 95-97%.
[2018-07-09 16:27] VITALS: RESP 20; O2SAT 95
[2018-07-09 17:01] LABS: Bedside Glucose 104 mg/dL (70-110)
--- NOTE | 2018-07-09 18:01 | NURSING ---
Addendum entered by Sonia Yang 07/09/18 18:42: Dr Munguia confirmed irreg resp as erma sol breathing, ok to remove oxygen. pt sat 98% on RA. Original Note: Dr Munguia here and speaking with both sons/family in room at this time.
--- NOTE | 2018-07-09 18:51 | RAD_ITS ---
STUDY: X-RAY - ABDOMEN/PELVIS REASON FOR EXAM: Male, 78 years old. Abdominal distention TECHNIQUE: AP supine and decubitus views of the abdomen and pelvis. COMPARISON: CT abdomen and pelvis July 08, 2018 FINDINGS: There is no right pleural effusion. An enteric tube is seen above the level of the stomach. Air distention of colon and less along the distal small bowel without pneumoperitoneum. Pneumatosis is not demonstrated on the plain films. There is no demonstrated free abdominal air. There are diffuse degenerative changes of the visualized lumbar spine. There is demineralization of osseous structures. RAD/Abd Decub and/or Erect(Portabl IMPRESSION: Persistent distention of colon. No evidence of pneumoperitoneum. Minimal distention of the distal small bowel. No wall thickening or thumbprinting or pneumatosis detected. Other nonacute findings as outlined above. Electronically Signed: Cassidy Cline MD at 4:20 EDT , Service support ,
[2018-07-10 00:06] LABS: Bedside Glucose 100 mg/dL (70-110)
--- NOTE | 2018-07-10 00:27 | NURSING ---
Dr Krishnan aware pt with rhonchi to anterior bilateral worse on R>L and posterior rhonchi to right lobes throughout and left base. Moist, non productive cough. Dr Krishnan aware pt vitals. N.O. to decrease IVF to 50ml/hr and administer DuoNeb. Will continue to monitor and asses.
[2018-07-10 00:35] VITALS: BP 132/85; PULSE 103; RESP 32; TEMP 36.9; O2SAT 93
[2018-07-10] MEDS: Metoclopramide 10 MG/2 ML Vial IV ×5 (00:44→23:22)
[2018-07-10 00:45] VITALS: PULSE 107; RESP 30; O2SAT 93
[2018-07-10] MEDS: 0.9% NaCl Peripheral Flush Adult/Peds IV ×7 (00:45→23:23)
[2018-07-10] MEDS: Albuterol 2.5 MG/3 ML VIAL.NEB. INHALATION (00:45)
[2018-07-10] MEDS: Menthol/Lanolin/Calamine/Znox 113 GM Tube 1 APPLIC TOPICAL ×3 (06:03→20:37)
[2018-07-10] MEDS: Lidocaine 5% Patch 1 PATCH TOPICAL (06:05)
[2018-07-10] MEDS: NYSTATIN 500,000 UNIT/5 ML UDC 500000 UNIT PO ×4 (06:09→20:39)
[2018-07-10 06:36] LABS: Bedside Glucose 101 mg/dL (70-110)
--- NOTE | 2018-07-10 07:43 | NURSING ---
Addendum entered by Sintia Paz 07/10/18 07:49: Dr Krishnan aware hold lovenox for now and draw CBC. Original Note: While wash pt's buttocks this AM, pt began leaking stool from rectum. Stool noted to be brown with reddish tinge. Pt with small liquid BM. Will up Dr Munguia. Will continue to monitor and asses.
[2018-07-10 08:09] LABS: Absolute Lymphocyte Count 1.78 X10^3/ul (0.83-4.51); Absolute Neutrophil Count 9.9 X10^3/uL (2.0-7.7); Basophil# 0.06 X10^3/uL; Basophil% 0.5 % (0-1); Eosinophil# 0.22 X10^3/uL; Eosinophils% 1.7 % (0-5); Hematocrit 31.4 % (40-54); Hemoglobin 9.7 g/dl (13.0-16.5); Lymphocyte # 1.78 X10^3/ul (4.0); Lymphocyte % 13.7 % (19-41); Mean Corp Hgb Conc 30.9 g/gl (32-36); Mean Corpuscular Hgb 25.3 pg (27.0-32.0); Mean Corpuscular Volume 81.8 fL (80-94); Mean Platelet Vol. 12.2 fl (6.2-12.0); Monocyte# 1.02 X10^3/uL; Monocyte% 7.8 % (0-10); Neutrophil # 9.94 X10^3/uL (2.7-7.7); Neutrophil % 76.1 % (47-70); Platelet Count 434 K/mm3 (150-450); RBC Distribution Width CV 17.6 % (11.6-14.6); RBC Distribution Width SD 52.4 fl (35.1-43.9); Red Blood Count 3.84 M/mm3 (4.6-6.2)
[2018-07-10 08:14] LABS: POSITIVE COUNT NO; POSITIVE DIFFERENTIAL NO; POSITIVE MORPHOLOGY NO
--- NOTE | 2018-07-10 09:52 | NURSING ---
Dr Munguia notified of HBG 9.7, was 11.3 2 days ago. new order to recheck in AM. Dr Munguia will be in tonight to reassess Corpak NG tube for advancing if needed according to recent xray lastnight.
[2018-07-10 11:06] LABS: Bedside Glucose 127 mg/dL (70-110)
[2018-07-10 11:10] VITALS: O2SAT 94
[2018-07-10 15:32] VITALS: BP 128/81; PULSE 102; RESP 27; TEMP 36.7; O2SAT 94
[2018-07-10 17:00] LABS: Bedside Glucose 86 mg/dL (70-110)
--- NOTE | 2018-07-10 22:45 | NURSING ---
Dr Munguia reviewed abd xrays, feels NG tube is in appropriate location. Dr Munguia observed pt at bedside feels NG is stable and secure. Dr Munguia would like tube feed to begin in AM with medication administration. Tube feed to begin at 10ml/hr increase 10ml/4hr. Flush 100ml/4hr. IVFs are to discontinue when tube feed goal rate of 60ml/hr is reached. Reglan to be administer via NG. Will continue to monitor and asses.
[2018-07-11 00:06] LABS: Bedside Glucose 81 mg/dL (70-110)
[2018-07-11] MEDS: Menthol/Lanolin/Calamine/Znox 113 GM Tube 1 APPLIC TOPICAL ×3 (05:25→21:13)
[2018-07-11] MEDS: Lidocaine 5% Patch 1 PATCH TOPICAL (05:26)
[2018-07-11] MEDS: Metoclopramide 10 MG/10 ML UDC NG ×3 (05:39→17:51)
[2018-07-11 05:53] LABS: Absolute Lymphocyte Count 1.65 X10^3/ul (0.83-4.51); Absolute Neutrophil Count 9.4 X10^3/uL (2.0-7.7); Basophil# 0.05 X10^3/uL; Basophil% 0.4 % (0-1); Eosinophil# 0.22 X10^3/uL; Eosinophils% 1.8 % (0-5); Hematocrit 32.5 % (40-54); Hemoglobin 9.9 g/dl (13.0-16.5); Lymphocyte # 1.65 X10^3/ul (4.0); Lymphocyte % 13.4 % (19-41); Mean Corp Hgb Conc 30.5 g/gl (32-36); Mean Corpuscular Hgb 25.7 pg (27.0-32.0); Mean Corpuscular Volume 84.4 fL (80-94); Monocyte# 0.96 X10^3/uL; Monocyte% 7.8 % (0-10); Neutrophil # 9.42 X10^3/uL (2.7-7.7); Neutrophil % 76.4 % (47-70); Platelet Count 451 K/mm3 (150-450); RBC Distribution Width CV 17.8 % (11.6-14.6); RBC Distribution Width SD 54.1 fl (35.1-43.9); Red Blood Count 3.85 M/mm3 (4.6-6.2); White Blood Count 12.3 K/mm3 (4.4-11.0)
[2018-07-11 05:55] LABS: POSITIVE DIFFERENTIAL NO; POSITIVE MORPHOLOGY NO
[2018-07-11 05:56] LABS: POSITIVE COUNT NO
[2018-07-11] MEDS: Carvedilol 3.125 MG TABLET GT ×2 (06:43→17:51)
[2018-07-11] MEDS: Lisinopril 10 MG Tablet GT (06:43)
[2018-07-11 06:50] LABS: Bedside Glucose 86 mg/dL (70-110)
--- NOTE | 2018-07-11 07:06 | NURSING ---
0530 DAVID Mclain present to asses NG via auscultation and aspiration. Dr Munguia asses xray for placement. Thirty ml of sterile water administer in to NG and aspirated back to determine patency, readministered. Reglan syrup administered afterward and flushed with sterile water 60ml. At 0600 NG aspirated, residual zero. Placement checked via auscultation. Glucerna started at 10ml/hr. At 0640 NG aspirated and residual zero. Placement verified with auscultation. Coreg and Zestril administered at this time followed by sterile water 60ml flush. Pt tolerated well. Will continue to monitor and asses.
--- NOTE | 2018-07-11 07:15 | NURSING ---
Well washing patient buttocks, scant amt of medium brown colored stool with red tinge noted leaking from rectum. Stool noted to have foul smell. Will update Dr Fernandez.
[2018-07-11] MEDS: Enoxaparin 40 MG/0.4 ML Syringe SC (09:44)
--- NOTE | 2018-07-11 09:50 | NURSING ---
Glucerna increased to 20mL/hr, patient had no residual volume, NG placement verified via auscultation.
--- NOTE | 2018-07-11 10:43 | NURSING ---
New order to d/c aspirin, recheck H&H in AM, continue lovenox and hold lantus for AM dose.
[2018-07-11 11:56] LABS: Bedside Glucose 132 mg/dL (70-110)
[2018-07-11 15:13] VITALS: BP 136/91; PULSE 106; RESP 18; TEMP 36.7; O2SAT 94
--- NOTE | 2018-07-11 15:29 | PCM.PN.RX ---
<Miguel Rasheed D - Last Filed: 07/11/18 15:29> Progress Note - Pharmacy Subjective: TCU Admission Objective: Allergies No Known Allergies Allergy (Verified 06/18/18 12:14) Current Medications Generic Name Dose Route Start Last Admin Trade Name Freq PRN Reason Stop Dose Admin Albuterol Sulfate 2.5 mg 07/07/18 18:57 07/10/18 00:45 Ventolin Aerosols INHALATION 2.5 mg Q4H PRN PRN Administration SOB &/OR WHEEZING Apixaban 5 mg 07/15/18 20:00 Eliquis GT BID SUL[facility]IMAN Calamine/Phenol 1 applic 07/07/18 22:00 07/11/18 05:25 Calmoseptine Ointment TOPICAL 1 applicatio TID [facility] Administration Protocol Carvedilol 3.125 mg 07/08/18 06:00 07/11/18 06:43 Coreg GT 3.125 mg BID SULAIMAN Administration Enoxaparin Sodium 40 mg 07/08/18 06:00 07/11/18 09:44 Lovenox SC 07/16/18 22:00 40 mg DAILY@0600 [facility]AN Administration Enteral Nutritional Formula 1,000 mls @ 10 mls/hr 07/11/18 06:00 07/11/18 06:00 Glucerna 1.5 NG 10 mls/hr .Q48H [facility] Administration Protocol Potassium Chloride/Dextrose/Sod Cl 1,000 mls @ 50 mls/hr 07/10/18 21:06 07/11/18 01:57 IV 50 mls/hr .Q20H [facility]AN Administration Insulin Glargine 24 units 07/10/18 06:00 07/11/18 09:43 Lantus ([facility]) SC Not Given DAILY [facility] Insulin Human Lispro 0 unit 07/08/18 00:00 07/11/18 12:03 Humalog Kwikpen ([facility]) SC Not Given Q6 [facility] Protocol Lidocaine 1 patch 07/08/18 06:00 07/11/18 05:26 Lidoderm Patch TOPICAL 1 patch DAILY [facility] Administration Protocol Lisinopril 10 mg 07/08/18 06:00 07/11/18 06:43 Zestril GT 10 mg DAILY [facility] Administration Melatonin 10 mg 07/08/18 22:00 07/10/18 20:37 Melatonin GT Not Given QHS [facility] Metoclopramide HCl 10 mg 07/11/18 06:00 07/11/18 12:02 Reglan NG 07/14/18 00:01 10 mg Q6 [facility] Administration Multi-Ingredient Cream 1 applic 07/09/18 22:00 07/10/18 20:37 Eucerin TOPICAL 1 applicatio QHS [facility] Administration Protocol Sodium Chloride 4 ml 07/08/18 06:00 07/09/18 20:20 Sodium Chl 3ml INHALATION Not Given BID.RT [facility] Sodium Chloride 5 - 15 ml 07/08/18 20:00 07/10/18 23:23 IV 10 ml UD PRN Administration SALINE FLUSH Tuberculin PPD 5 tu 07/15/18 10:00 Tubersol, Aplisol, Ppd ID 07/15/18 10:01 X1 ONE Problem List (Last Updated 07/08/18 @ 11:00 by Beatriz Munguia MD) Chronic ischemic right MCA stroke (Chronic) Atrial fibrillation (Acute) H/O colon cancer, stage III (Acute) H/O malignant neoplasm of pancreas (Acute) HTN (hypertension) (Chronic) T2DM (type 2 diabetes mellitus) (Acute) Dysphagia following cerebral infarction (Acute) Chronic systolic CHF (congestive heart failure) (Chronic) Obesity (BMI 30.0-34.9) (Acute) Transaminitis (Acute) Vital Signs Temp Pulse Resp BP Pulse Ox 98.1 F 106 H 18 136/91 H 94 07/11/18 15:13 07/11/18 15:13 07/11/18 15:13 07/11/18 15:13 07/11/18 15:13 Oxygen Flow Rate (L/min) 2 Oxygen Delivery Method Room Air Weight: 89.925 kg Body Mass Index (BMI) 30.4 Finger Stick Blood Glucose 261 Sodium 141 mmol/L (136-145) 07/08/18 05:20 Potassium 4.3 mmol/L (3.5-5.1) 07/08/18 05:20 Chloride 109 mmol/L (98-107) H 07/08/18 05:20 Carbon Dioxide 30.0 mmol/L (21.0-32.0) 07/08/18 05:20 Anion Gap 2 (5-15) L 07/08/18 05:20 BUN 21 mg/dL (7-18) H 04/16/19 05:20 Creatinine 0.54 mg/dL (0.70-1.30) L 07/08/18 05:20 Est GFR (MDRD) Af Amer 190 mL/min (>60) 07/08/18 05:20 Est GFR (MDRD) Non-Af 157 mL/min (>60) 07/08/18 05:20 BUN/Creatinine Ratio 38.9 RATIO (10-20) H 07/08/18 05:20 Glucose 109 mg/dL (74-106) H 07/08/18 05:20 Assessment/Plan: 1) Pain Lidocaine patch. Continue to monitor daily pain scores. 2) DM2 Insulin glargine, lispro. Continue to monitor BGT, s/s hyper/hypoglycemia. 3) GI Metoclopramide. Continue to monitor s/s GI distress. 4) Pulm NaCl inh, albuterol inh prn. Continue to monitor prn medication use, for shortness of breath. 5) Afib/HTN Apixaban, carvedilol, lisinopril. Continue to monitor BP/HR, renal function, electrolytes, s/s bleeding/clot. 6) DVT PPx Enoxaparin. Continue to monitor s/s bleeding/clot. 7) Sleep Melatonin. Continue to monitor for insomnia. Psychotropic Medications: None Unnecessary Medications: None Bowel Regimen: None Date of Note:: 07/11/18 - Provider Comments Provider responsibility: Provider responsible to enter orders to implement recommendations <Gerardo Fernandez Chi - Last Filed: 07/11/18 16:14> Progress Note - Pharmacy Subjective: [] Objective: Allergies No Known Allergies Allergy (Verified 06/18/18 12:14) Current Medications Generic Name Dose Route Start Last Admin Trade Name Freq PRN Reason Stop Dose Admin Albuterol Sulfate 2.5 mg 07/07/18 18:57 07/10/18 00:45 Ventolin Aerosols INHALATION 2.5 mg Q4H PRN PRN Administration SOB &/OR WHEEZING Apixaban 5 mg 07/15/18 20:00 Eliquis GT BID SULAIMAN Calamine/Phenol 1 applic 07/07/18 22:00 07/11/18 05:25 Calmoseptine Ointment TOPICAL 1 applicatio TID [facility] Administration Protocol Carvedilol 3.125 mg 07/08/18 06:00 07/11/18 06:43 Coreg GT 3.125 mg BID [facility]UL[facility]IMAN Administration Enoxaparin Sodium 40 mg 07/08/18 06:00 07/11/18 09:44 Lovenox SC 07/16/18 22:00 40 mg DAILY@0600 [facility] Administration Enteral Nutritional Formula 1,000 mls @ 10 mls/hr 07/11/18 06:00 07/11/18 06:00 Glucerna 1.5 NG 10 mls/hr .Q48H [facility] Administration Protocol Potassium Chloride/Dextrose/Sod Cl 1,000 mls @ 50 mls/hr 07/10/18 21:06 07/11/18 01:57 IV 50 mls/hr .Q20H [facility] Administration Insulin Glargine 24 units 07/10/18 06:00 07/11/18 09:43 Lantus ([facility]) SC Not Given DAILY [facility] Insulin Human Lispro 0 unit 07/08/18 00:00 07/11/18 12:03 Humalog Kwikpen ([facility]) SC Not Given Q6 [facility] Protocol Lidocaine 1 patch 07/08/18 06:00 07/11/18 05:26 Lidoderm Patch TOPICAL 1 patch DAILY [facility] Administration Protocol Lisinopril 10 mg 07/08/18 06:00 07/11/18 06:43 Zestril GT 10 mg DAILY [facility] Administration Melatonin 10 mg 07/08/18 22:00 07/10/18 20:37 Melatonin GT Not Given QHS [facility] Metoclopramide HCl 10 mg 07/11/18 06:00 07/11/18 12:02 Reglan NG 07/14/18 00:01 10 mg Q6 [facility] Administration Multi-Ingredient Cream 1 applic 07/09/18 22:00 07/10/18 20:37 Eucerin TOPICAL 1 applicatio QHS [facility] Administration Protocol Sodium Chloride 4 ml 07/08/18 06:00 07/09/18 20:20 Sodium Chl 3ml INHALATION Not Given BID.RT [facility] Sodium Chloride 5 - 15 ml 07/08/18 20:00 07/10/18 23:23 IV 10 ml UD PRN Administration SALINE FLUSH Tuberculin PPD 5 tu 07/15/18 10:00 Tubersol, Aplisol, Ppd ID 07/15/18 10:01 X1 ONE Problem List (Last Updated 07/08/18 @ 11:00 by Beatriz Munguia MD) Chronic ischemic right MCA stroke (Chronic) Atrial fibrillation (Acute) H/O colon cancer, stage III (Acute) H/O malignant neoplasm of pancreas (Acute) HTN (hypertension) (Chronic) T2DM (type 2 diabetes mellitus) (Acute) Dysphagia following cerebral infarction (Acute) Chronic systolic CHF (congestive heart failure) (Chronic) Obesity (BMI 30.0-34.9) (Acute) Transaminitis (Acute) Vital Signs Temp Pulse Resp BP Pulse Ox 98.1 F 106 H 18 136/91 H 94 07/11/18 15:13 07/11/18 15:13 07/11/18 15:13 07/11/18 15:13 07/11/18 15:13 Oxygen Flow Rate (L/min) 2 Oxygen Delivery Method Room Air Weight: 89.925 kg Body Mass Index (BMI) 30.4 Finger Stick Blood Glucose 261 Sodium 141 mmol/L (136-145) 07/08/18 05:20 Potassium 4.3 mmol/L (3.5-5.1) 07/08/18 05:20 Chloride 109 mmol/L (98-107) H 07/08/18 05:20 Carbon Dioxide 30.0 mmol/L (21.0-32.0) 07/08/18 05:20 Anion Gap 2 (5-15) L 07/08/18 05:20 BUN 21 mg/dL (7-18) H 07/08/18 05:20 Creatinine 0.54 mg/dL (0.70-1.30) L 07/08/18 05:20 Est GFR (MDRD) Af Amer 190 mL/min (>60) 07/08/18 05:20 Est GFR (MDRD) Non-Af 157 mL/min (>60) 07/08/18 05:20 BUN/Creatinine Ratio 38.9 RATIO (10-20) H 07/08/18 05:20 Glucose 109 mg/dL (74-106) H 07/08/18 05:20 Assessment/Plan: Psychotropic Medications: Unnecessary Medications: Bowel Regimen: - Provider Comments Provider responsibility: Provider responsible to enter orders to implement recommendations Provider Comments to Recommendations by Pharmacy: Agree
--- NOTE | 2018-07-11 15:33 | PHA.CONS_ITS ---
<Miguel Rasheed D - Last Filed: 07/11/18 15:29> Progress Note - Pharmacy Subjective: TCU Admission Objective: Allergies No Known Allergies Allergy (Verified 06/18/18 12:14) Current Medications Generic Name Dose Route Start Last Admin Trade Name Freq PRN Reason Stop Dose Admin Albuterol Sulfate 2.5 mg 07/07/18 18:57 07/10/18 00:45 Ventolin Aerosols INHALATION 2.5 mg Q4H PRN PRN Administration SOB &/OR WHEEZING Apixaban 5 mg 07/15/18 20:00 Eliquis GT BID SULAIMAN Calamine/Phenol 1 applic 07/07/18 22:00 07/11/18 05:25 Calmoseptine Ointment TOPICAL 1 applicatio TID [facility] Administration Protocol Carvedilol 3.125 mg 07/08/18 06:00 07/11/18 06:43 Coreg GT 3.125 mg BID SULAIMAN Administration Enoxaparin Sodium 40 mg 07/08/18 06:00 07/11/18 09:44 Lovenox SC 07/16/18 22:00 40 mg DAILY@0600 [facility] Administration Enteral Nutritional Formula 1,000 mls @ 10 mls/hr 07/11/18 06:00 07/11/18 06:00 Glucerna 1.5 NG 10 mls/hr .Q48H [facility] Administration Protocol Potassium Chloride/Dextrose/Sod Cl 1,000 mls @ 50 mls/hr 07/10/18 21:06 07/11/18 01:57 IV 50 mls/hr .Q20H [facility] Administration Insulin Glargine 24 units 07/10/18 06:00 07/11/18 09:43 Lantus ([facility]) SC Not Given DAILY [facility] Insulin Human Lispro 0 unit 07/08/18 00:00 07/11/18 12:03 Humalog Kwikpen ([facility]) SC Not Given Q6 [facility] Protocol Lidocaine 1 patch 07/08/18 06:00 07/11/18 05:26 Lidoderm Patch TOPICAL 1 patch DAILY [facility] Administration Protocol Lisinopril 10 mg 07/08/18 06:00 07/11/18 06:43 Zestril GT 10 mg DAILY [facility] Administration Melatonin 10 mg 07/08/18 22:00 07/10/18 20:37 Melatonin GT Not Given QHS [facility] Metoclopramide HCl 10 mg 07/11/18 06:00 07/11/18 12:02 Reglan NG 07/14/18 00:01 10 mg Q6 [facility] Administration Multi-Ingredient Cream 1 applic 07/09/18 22:00 07/10/18 20:37 Eucerin TOPICAL 1 applicatio QHS [facility] Administration Protocol Sodium Chloride 4 ml 07/08/18 06:00 07/09/18 20:20 Sodium Chl 3ml INHALATION Not Given BID.RT [facility]AN Sodium Chloride 5 - 15 ml 07/08/18 20:00 07/10/18 23:23 IV 10 ml UD PRN Administration SALINE FLUSH Tuberculin PPD 5 tu 07/15/18 10:00 Tubersol, Aplisol, Ppd ID 07/15/18 10:01 X1 ONE Problem List (Last Updated 07/08/18 @ 11:00 by Beatriz Munguia MD) Chronic ischemic right MCA stroke (Chronic) Atrial fibrillation (Acute) H/O colon cancer, stage III (Acute) H/O malignant neoplasm of pancreas (Acute) HTN (hypertension) (Chronic) T2DM (type 2 diabetes mellitus) (Acute) Dysphagia following cerebral infarction (Acute) Chronic systolic CHF (congestive heart failure) (Chronic) Obesity (BMI 30.0-34.9) (Acute) Transaminitis (Acute) Vital Signs Temp Pulse Resp BP Pulse Ox 98.1 F 106 H 18 136/91 H 94 07/11/18 15:13 07/11/18 15:13 07/11/18 15:13 07/11/18 15:13 07/11/18 15:13 Oxygen Flow Rate (L/min) 2 Oxygen Delivery Method Room Air Weight: 89.925 kg Body Mass Index (BMI) 30.4 Finger Stick Blood Glucose 261 Sodium 141 mmol/L (136-145) 07/08/18 05:20 Potassium 4.3 mmol/L (3.5-5.1) 07/08/18 05:20 Chloride 109 mmol/L (98-107) H 07/08/18 05:20 Carbon Dioxide 30.0 mmol/L (21.0-32.0) 07/08/18 05:20 Anion Gap 2 (5-15) L 07/08/18 05:20 BUN 21 mg/dL (7-18) H 04/16/19 05:20 Creatinine 0.54 mg/dL (0.70-1.30) L 07/08/18 05:20 Est GFR (MDRD) Af Amer 190 mL/min (>60) 07/08/18 05:20 Est GFR (MDRD) Non-Af 157 mL/min (>60) 07/08/18 05:20 BUN/Creatinine Ratio 38.9 RATIO (10-20) H 07/08/18 05:20 Glucose 109 mg/dL (74-106) H 07/08/18 05:20 Assessment/Plan: 1) Pain Lidocaine patch. Continue to monitor daily pain scores. 2) DM2 Insulin glargine, lispro. Continue to monitor BGT, s/s hyper/hypoglycemia. 3) GI Metoclopramide. Continue to monitor s/s GI distress. 4) Pulm NaCl inh, albuterol inh prn. Continue to monitor prn medication use, for shortness of breath. 5) Afib/HTN Apixaban, carvedilol, lisinopril. Continue to monitor BP/HR, renal function, electrolytes, s/s bleeding/clot. 6) DVT PPx Enoxaparin. Continue to monitor s/s bleeding/clot. 7) Sleep Melatonin. Continue to monitor for insomnia. Psychotropic Medications: None Unnecessary Medications: None Bowel Regimen: None Date of Note:: 07/11/18 - Provider Comments Provider responsibility: Provider responsible to enter orders to implement recommendations <Gerardo Fernandez Chi - Last Filed: 07/11/18 16:14> Progress Note - Pharmacy Subjective: [] Objective: Allergies No Known Allergies Allergy (Verified 06/18/18 12:14) Current Medications Generic Name Dose Route Start Last Admin Trade Name Freq PRN Reason Stop Dose Admin Albuterol Sulfate 2.5 mg 07/07/18 18:57 07/10/18 00:45 Ventolin Aerosols INHALATION 2.5 mg Q4H PRN PRN Administration SOB &/OR WHEEZING Apixaban 5 mg 07/15/18 20:00 Eliquis GT BID SULAIMAN Calamine/Phenol 1 applic 07/07/18 22:00 07/11/18 05:25 Calmoseptine Ointment TOPICAL 1 applicatio TID [facility] Administration Protocol Carvedilol 3.125 mg 07/08/18 06:00 07/11/18 06:43 Coreg GT 3.125 mg BID SULAIMAN Administration Enoxaparin Sodium 40 mg 07/08/18 06:00 07/11/18 09:44 Lovenox SC 07/16/18 22:00 40 mg DAILY@0600 [facility] Administration Enteral Nutritional Formula 1,000 mls @ 10 mls/hr 07/11/18 06:00 07/11/18 06:00 Glucerna 1.5 NG 10 mls/hr .Q48H [facility] Administration Protocol Potassium Chloride/Dextrose/Sod Cl 1,000 mls @ 50 mls/hr 07/10/18 21:06 07/11/18 01:57 IV 50 mls/hr .Q20H [facility] Administration Insulin Glargine 24 units 07/10/18 06:00 07/11/18 09:43 Lantus ([facility]) SC Not Given DAILY [facility] Insulin Human Lispro 0 unit 07/08/18 00:00 07/11/18 12:03 Humalog Kwikpen ([facility]) SC Not Given Q6 [facility] Protocol Lidocaine 1 patch 07/08/18 06:00 07/11/18 05:26 Lidoderm Patch TOPICAL 1 patch DAILY [facility] Administration Protocol Lisinopril 10 mg 07/08/18 06:00 07/11/18 06:43 Zestril GT 10 mg DAILY [facility] Administration Melatonin 10 mg 07/08/18 22:00 07/10/18 20:37 Melatonin GT Not Given QHS [facility] Metoclopramide HCl 10 mg 07/11/18 06:00 07/11/18 12:02 Reglan NG 07/14/18 00:01 10 mg Q6 [facility] Administration Multi-Ingredient Cream 1 applic 07/09/18 22:00 07/10/18 20:37 Eucerin TOPICAL 1 applicatio QHS [facility] Administration Protocol Sodium Chloride 4 ml 07/08/18 06:00 07/09/18 20:20 Sodium Chl 3ml INHALATION Not Given BID.RT [facility] Sodium Chloride 5 - 15 ml 07/08/18 20:00 07/10/18 23:23 IV 10 ml UD PRN Administration SALINE FLUSH Tuberculin PPD 5 tu 07/15/18 10:00 Tubersol, Aplisol, Ppd ID 07/15/18 10:01 X1 ONE Problem List (Last Updated 07/08/18 @ 11:00 by Beatriz Munguia MD) Chronic ischemic right MCA stroke (Chronic) Atrial fibrillation (Acute) H/O colon cancer, stage III (Acute) H/O malignant neoplasm of pancreas (Acute) HTN (hypertension) (Chronic) T2DM (type 2 diabetes mellitus) (Acute) Dysphagia following cerebral infarction (Acute) Chronic systolic CHF (congestive heart failure) (Chronic) Obesity (BMI 30.0-34.9) (Acute) Transaminitis (Acute) Vital Signs Temp Pulse Resp BP Pulse Ox 98.1 F 106 H 18 136/91 H 94 07/11/18 15:13 07/11/18 15:13 07/11/18 15:13 07/11/18 15:13 07/11/18 15:13 Oxygen Flow Rate (L/min) 2 Oxygen Delivery Method Room Air Weight: 89.925 kg Body Mass Index (BMI) 30.4 Finger Stick Blood Glucose 261 Sodium 141 mmol/L (136-145) 07/08/18 05:20 Potassium 4.3 mmol/L (3.5-5.1) 07/08/18 05:20 Chloride 109 mmol/L (98-107) H 07/08/18 05:20 Carbon Dioxide 30.0 mmol/L (21.0-32.0) 07/08/18 05:20 Anion Gap 2 (5-15) L 07/08/18 05:20 BUN 21 mg/dL (7-18) H 07/08/18 05:20 Creatinine 0.54 mg/dL (0.70-1.30) L 07/08/18 05:20 Est GFR (MDRD) Af Amer 190 mL/min (>60) 07/08/18 05:20 Est GFR (MDRD) Non-Af 157 mL/min (>60) 07/08/18 05:20 BUN/Creatinine Ratio 38.9 RATIO (10-20) H 07/08/18 05:20 Glucose 109 mg/dL (74-106) H 07/08/18 05:20 Assessment/Plan: Psychotropic Medications: Unnecessary Medications: Bowel Regimen: - Provider Comments Provider responsibility: Provider responsible to enter orders to implement recommendations Provider Comments to Recommendations by Pharmacy: Agree
[2018-07-11 16:35] VITALS: O2SAT 95
[2018-07-11 17:06] LABS: Bedside Glucose 147 mg/dL (70-110)
[2018-07-11] MEDS: MELATONIN 10 MG TABLET GT (23:01)
[2018-07-12 00:10] LABS: Bedside Glucose 171 mg/dL (70-110)
[2018-07-12] MEDS: Metoclopramide 10 MG/10 ML UDC NG ×5 (00:51→23:13)
[2018-07-12] MEDS: Insulin Lispro 100 UNIT/ML INSULN.PEN SC ×4 (00:51→23:25)
[2018-07-12] MEDS: Menthol/Lanolin/Calamine/Znox 113 GM Tube 1 APPLIC TOPICAL ×3 (05:38→23:11)
[2018-07-12] MEDS: Enoxaparin 40 MG/0.4 ML Syringe SC (05:40)
[2018-07-12] MEDS: Lisinopril 10 MG Tablet GT (05:40)
[2018-07-12] MEDS: Lidocaine 5% Patch 1 PATCH TOPICAL (05:40)
[2018-07-12] MEDS: Carvedilol 3.125 MG TABLET GT ×2 (05:40→18:48)
[2018-07-12 06:41] LABS: Bedside Glucose 182 mg/dL (70-110)
[2018-07-12 07:03] LABS: Hematocrit 33.1 % (40-54); Hemoglobin 10.2 g/dl (13.0-16.5)
[2018-07-12 12:56] LABS: Bedside Glucose 185 mg/dL (70-110)
[2018-07-12 16:00] VITALS: BP 134/86; PULSE 99; RESP 22; TEMP 36.7; O2SAT 93
[2018-07-12 17:21] LABS: Bedside Glucose 139 mg/dL (70-110)
[2018-07-12] MEDS: MELATONIN 10 MG TABLET GT (23:13)
[2018-07-12 23:35] LABS: Bedside Glucose 163 mg/dL (70-110)
[2018-07-13 00:21] VITALS: RESP 18
[2018-07-13] MEDS: Lidocaine 5% Patch 1 PATCH TOPICAL (05:35)
[2018-07-13] MEDS: Enoxaparin 40 MG/0.4 ML Syringe SC (05:35)
[2018-07-13] MEDS: Metoclopramide 10 MG/10 ML UDC NG ×3 (05:35→16:42)
[2018-07-13] MEDS: Lisinopril 10 MG Tablet GT (05:36)
[2018-07-13] MEDS: Carvedilol 3.125 MG TABLET GT ×2 (05:36→16:42)
[2018-07-13] MEDS: Menthol/Lanolin/Calamine/Znox 113 GM Tube 1 APPLIC TOPICAL ×3 (05:36→21:18)
[2018-07-13] MEDS: 0.9% NaCl Peripheral Flush Adult/Peds IV (05:52)
[2018-07-13 06:45] LABS: Bedside Glucose 146 mg/dL (70-110)
[2018-07-13] MEDS: Insulin Lispro 100 UNIT/ML INSULN.PEN SC ×2 (12:07→17:40)
[2018-07-13 12:10] LABS: Bedside Glucose 164 mg/dL (70-110)
[2018-07-13 15:47] VITALS: BP 105/63; PULSE 100; RESP 28; TEMP 35.8; O2SAT 97
[2018-07-13 17:16] LABS: Bedside Glucose 171 mg/dL (70-110)
[2018-07-13] MEDS: MELATONIN 10 MG TABLET GT (21:20)
[2018-07-14 00:05] LABS: Bedside Glucose 157 mg/dL (70-110)
[2018-07-14] MEDS: Metoclopramide 10 MG/10 ML UDC NG (00:07)
[2018-07-14] MEDS: Insulin Lispro 100 UNIT/ML INSULN.PEN SC ×4 (00:21→17:22)
[2018-07-14] MEDS: Lisinopril 10 MG Tablet GT (05:14)
[2018-07-14] MEDS: Carvedilol 3.125 MG TABLET GT ×2 (05:14→17:13)
[2018-07-14] MEDS: Lidocaine 5% Patch 1 PATCH TOPICAL (05:14)
[2018-07-14] MEDS: Enoxaparin 40 MG/0.4 ML Syringe SC (05:16)
[2018-07-14] MEDS: Menthol/Lanolin/Calamine/Znox 113 GM Tube 1 APPLIC TOPICAL ×3 (05:26→21:05)
[2018-07-14 06:40] LABS: Bedside Glucose 166 mg/dL (70-110)
--- NOTE | 2018-07-14 10:33 | NURSING ---
residual checked on corpak NG tube, 0 cc residual. cath care provided. urine dark/hematuria. pt unresponsive this AM. Eyelids flutter when name called. no distress noted. repositioned, mouth care given. Tube feed running as ordered. alarms in place for safety. bed in low position. mats on floor.
[2018-07-14 11:00] LABS: Bedside Glucose 168 mg/dL (70-110)
--- NOTE | 2018-07-14 13:30 | CASEMGMT ---
SW saw pt for BIMS and PHQ9 interviews for MDS. PT not verbally responding for pt at this time. Staff assessment completed. MENDEZ Matamoros
--- NOTE | 2018-07-14 14:17 | MDS.RN ---
staff observation completed for pain interview for funmi 07/14/18 today.
--- NOTE | 2018-07-14 14:48 | NURSING ---
0 residual noted, pt repositioned, mouth care provided. HOB elevated at 30 degrees. TF continues as ordered.
[2018-07-14 15:29] VITALS: BP 107/55; PULSE 73; RESP 28; TEMP 36.8; O2SAT 92
--- NOTE | 2018-07-14 17:24 | NURSING ---
o cc residual, coreg given thru NG tube. repositioned to back. mouth care and lip moisturizer done. pt sat 93% on RA. resp 35, no distress noted. remains unresponsive. eyes open at times but does not track. bed in low position, mats on floor. alarm in plce.
[2018-07-14 17:25] LABS: Bedside Glucose 186 mg/dL (70-110)
[2018-07-14] MEDS: MELATONIN 10 MG TABLET GT (21:05)
[2018-07-14] MEDS: Nystatin Powder 15gm Bottle 1 APPLIC TOPICAL (21:10)
--- NOTE | 2018-07-14 22:53 | NURSING ---
Addendum entered by Sintia Paz 07/15/18 02:52: Pt transferred to ICU Original Note: 0532 RN entered room pt with emesis noted out of left side of mouth. Emesis baptiste with chunks, foul smelling. Tube feed stopped. Abd firm, distended. Oral suction provide. Pt washed and new gown applied. Pt with medium, dark brown, loose/liquid BM. Rhonchi noted throughout. Breathing tx requested. Pt auditory rattle increasingly worse. B/P 150/104 HR irreg 124 temp 97.9 ax Resp 35 SPO2 88% RA, mask applied. Pt using accessory muscles. Dr Jim phillips. [employer] called. Pt sent to ER. Family notified at [id number]. Per [id number], pt's son and she will be right in. ER notified.
--- NOTE | 2018-07-15 08:11 | DCINST_ITS ---
- Discharge Diagnoses Current Active Problems: Current Active and Chronic Problems (Last Updated 07/08/18 @ 11:00 by Beatriz Munguia MD) Aspiration of food (Acute) Hyperglycemia (Acute) Atrial fibrillation with RVR (Acute) Acute respiratory failure with hypoxia and hypercapnia (Acute) Lactic acidosis (Acute) Urinary tract infection (Acute) Severe sepsis (Acute) You will use the following diet at home:: Other - NPO, TF only. Call your doctor if you observe: Fever of 101 or Higher, Inability to urinate, Inability to have a bowel movement, Shortness of breath, Chest pain, Uncontrolled pain Allergies/Adverse Reactions: Allergies No Known Allergies Allergy (Verified 07/14/18 23:21) Medications to take at Discharge Lisinopril [Zestril] 10 mg GT DAILY 12/06/14 Albuterol Aerosols [Ventolin Aerosols] 2.5 mg INHALATION Q4H PRN PRN 07/07/18 Apixaban [Eliquis] 5 mg GT BID 07/07/18 Aspir-Low 81 mg GT DAILY 07/07/18 Docusate Sodium [Stool Softener] 50 mg GT BID 07/07/18 Enoxaparin [Lovenox] 40 mg SC DAILY@0600 07/07/18 Insulin Glargine [Lantus (BKC)] 24 units SC DAILY 07/07/18 Lidocaine [Lidoderm Patch] 1 patch TOPICAL DAILY 07/07/18 Lisinopril [Prinivil] 10 mg GT DAILY 07/07/18 Melatonin/Pyridoxine HCl (B6) [Melatonin 3 mg Tablet] 2 each GT QHS 07/07/18 RX: Bisacodyl 10 mg RC DAILY PRN 07/07/18 RX: Carvedilol 3.125 mg GT BID 07/07/18 RX: Nystatin 5 ml PO BID 07/07/18 RX: Polyethylene Glycol 3350 17 gm GT DAILY 07/07/18 Senna [Senokot] 1 tablet GT BID 07/07/18 Sodium Chloride For Inhalation [Sodium Chloride] 4 ml IH BID 07/07/18 Insulin Lispro [Humalog KwikPen] See Protocol SC Q6H 07/14/18 Metoclopramide [Reglan] 10 mg PO 4X/DAY 07/15/18 Primary Care Physician: Gerardo Fernandez Chi, MD [Primary Care Provider] - Please follow up with your Primary Care Physician in: 1 week. Test Results: Test results from this visit will be discussed in further detail at your follow- up appointment, if applicable. Please Follow Up With: ALEXANDRA Montesinos Please Follow Up With: Radiology CT Scan Please Follow Up With: ALEXANDRA Montesinos Proposed Discharge Date: 07/14/18
--- NOTE | 2018-07-15 08:11 | PCM.DC.SUM ---
Discharge Date and Diagnosis - Problem List Patient Problems: Active and Suspected Problems (Last Updated 07/08/18 @ 11:00 by Beatriz Munguia MD) Aspiration of food (Acute) Hyperglycemia (Acute) Atrial fibrillation with RVR (Acute) Acute respiratory failure with hypoxia and hypercapnia (Acute) Lactic acidosis (Acute) Urinary tract infection (Acute) Severe sepsis (Acute) Date of Admission: 07/08/18 Date of Discharge: 07/14/18 - Primary Discharge Diagnosis Active and Suspected Problems (Last Updated 07/08/18 @ 11:00 by Beatriz Munguia MD) Aspiration of food (Acute) Hyperglycemia (Acute) Atrial fibrillation with RVR (Acute) Acute respiratory failure with hypoxia and hypercapnia (Acute) Lactic acidosis (Acute) Urinary tract infection (Acute) Severe sepsis (Acute) - Secondary Discharge Diagnosis Chronic Problems (Last Updated 07/08/18 @ 11:00 by Beatriz Munguia MD) Chronic ischemic right MCA stroke (Chronic) Atrial fibrillation (Chronic) H/O colon cancer, stage III (Chronic) H/O malignant neoplasm of pancreas (Chronic) HTN (hypertension) (Chronic) T2DM (type 2 diabetes mellitus) (Chronic) Dysphagia following cerebral infarction (Chronic) Chronic systolic CHF (congestive heart failure) (Chronic) Hospital Course and Treatment Imaging Results: Clinical Impression(s) from Imaging Studies KUB X-Ray 07/07/18 21:38 IMPRESSION: Enteric tube tip in the stomach. Dilated loops of small and large bowel in the visualized abdomen. This may be due to ileus or obstruction and further evaluation with CT is recommended. Electronically Signed: Mitchell Moore, at 22:08 EDT Tel , Service support , Abdomen X-Ray 07/09/18 18:51 IMPRESSION: Persistent distention of colon. No evidence of pneumoperitoneum. Minimal distention of the distal small bowel. No wall thickening or thumbprinting or pneumatosis detected. Other nonacute findings as outlined above. Electronically Signed: Cassidy Cline MD at 4:20 EDT , Service support , Labs (Last 48 Hours) 07/13/18 07/13/18 07/13/18 12:06 17:07 23:59 POC Glucose 164 H 171 H 157 H 07/14/18 07/14/18 07/14/18 06:24 10:55 17:14 POC Glucose 166 H 168 H 186 H Operations: None Procedures: None Summary of Care Provided: The patient is a 78 year old Male with below past medical history hospitalized with right MCA stroke requiring hemicraniectomy, admitted to TCU with debility, here for rehabilitation, strengthening. 07/14/2018 Resident vomited, aspirated, developed respiratory distress, MENTAL TELEPATHIST called. Discharge to [facility] Emergency Department for evaluation, admission to hospital. Patient Problems: Active and Suspected Problems (Last Updated 07/08/18 @ 11:00 by Beatriz Munguia MD) Aspiration of food (Acute) Hyperglycemia (Acute) Atrial fibrillation with RVR (Acute) Acute respiratory failure with hypoxia and hypercapnia (Acute) Lactic acidosis (Acute) Urinary tract infection (Acute) Severe sepsis (Acute) - Physical Exam Vital Signs Temp Pulse Resp BP Pulse Ox 98.2 F 73 28 H 107/55 L 92 07/14/18 15:29 07/14/18 15:29 07/14/18 15:29 07/14/18 15:29 07/14/18 15:29 Oxygen Flow Rate (L/min) 2 Oxygen Delivery Method Room Air Weight: 89.925 kg Body Mass Index (BMI) 30.4 Finger Stick Blood Glucose 261 Intake and Output for Last 24 Hours 07/13/18 07/14/18 07/15/18 23:59 23:59 23:59 Intake Total 1839 / 1839 1385 / 1385 Output Total 400 / 400 950 / 950 Balance 1439 / 1439 435 / 435 POC Glucose 07/14/18 07/14/18 17:14 10:55 POC Glucose 186 H 168 H Call your doctor if you observe: Fever of 101 or Higher, Inability to urinate, Inability to have a bowel movement, Shortness of breath, Chest pain, Uncontrolled pain Home Medications: Medications to take at Discharge Lisinopril [Zestril] 10 mg GT DAILY 12/06/14 Albuterol Aerosols [Ventolin Aerosols] 2.5 mg INHALATION Q4H PRN PRN 07/07/18 Apixaban [Eliquis] 5 mg GT BID 07/07/18 Aspir-Low 81 mg GT DAILY 07/07/18 Bisacodyl 10 mg RC DAILY PRN 07/07/18 Carvedilol 3.125 mg GT BID 07/07/18 Docusate Sodium [Stool Softener] 50 mg GT BID 07/07/18 Enoxaparin [Lovenox] 40 mg SC DAILY@0600 07/07/18 Insulin Glargine [Lantus (BKC)] 24 units SC DAILY 07/07/18 Lidocaine [Lidoderm Patch] 1 patch TOPICAL DAILY 07/07/18 Lisinopril [Prinivil] 10 mg GT DAILY 07/07/18 Melatonin/Pyridoxine HCl (B6) [Melatonin 3 mg Tablet] 2 each GT QHS 07/07/18 Nystatin 5 ml PO BID 07/07/18 Polyethylene Glycol 3350 17 gm GT DAILY 07/07/18 Senna [Senokot] 1 tablet GT BID 07/07/18 Sodium Chloride For Inhalation [Sodium Chloride] 4 ml IH BID 07/07/18 Insulin Lispro [Humalog KwikPen] See Protocol SC Q6H 07/14/18 Metoclopramide [Reglan] 10 mg PO 4X/DAY 07/15/18 Primary Care Physician: Gerardo Fernandez Chi, MD [Primary Care Provider] - Please follow up with your Primary Care Physician in: 1 week. Please Follow Up With: ALEXANDRA Montesinos Please Follow Up With: Radiology CT Scan Please Follow Up With: ALEXANDRA Montesinos Disposition: Acute care Hospital Minutes spent on discharge:: 30 Patient Condition:: Critical Medical Necessity - Tobacco Use Smoking Status: Current some day smoker Tobacco Use: Cigars, Chew, Pipe Meaningful Use Info Meaningful Use Diagnoses (Choose all that apply): None applicable
--- NOTE | 2018-07-16 13:08 | MDS.RN ---
Information for the mds was obtained from review of the clinical record, interview of resident, staff, and direct observation of resident's care.
== END 2018-07-15 01:30 | disposition short-term general hospital (02) | DRG 56 ==
PROVIDERS: Admitting Provider Internal Medicine; Family Provider Family Medicine Geriatric Medicine; PCP Family Medicine Geriatric Medicine; Visit Provider Internal Medicine
DX: I69.391 Dysphagia following cerebral infarction (principal); J96.02 Acute respiratory failure with hypercapnia; J96.01 Acute respiratory failure with hypoxia; Z46.59 Encounter for fitting and adjustment of other gastrointestinal appliance and device; I50.22 Chronic systolic (congestive) heart failure; E44.0 Moderate protein-calorie malnutrition; R13.10 Dysphagia, unspecified; I48.91 Unspecified atrial fibrillation; E11.9 Type 2 diabetes mellitus without complications; I11.0 Hypertensive heart disease with heart failure; E66.9 Obesity, unspecified; Z68.30 Body mass index [BMI] 30.0-30.9, adult; Z71.3 Dietary counseling and surveillance; F17.210 Nicotine dependence, cigarettes, uncomplicated; Z85.038 Personal history of other malignant neoplasm of large intestine; Z85.07 Personal history of malignant neoplasm of pancreas; L89.151 Pressure ulcer of sacral region, stage 1; T17.918A Gastric contents in respiratory tract, part unspecified causing other injury, initial encounter; X58.XXXA Exposure to other specified factors, initial encounter; Y92.129 Unspecified place in nursing home as the place of occurrence of the external cause
CPT/HCPCS: 36415; 74018; 74019; 80048; 82962; 85014; 85018; 85025; 92507; 92526; 92610; 94640; 97110; 97163; 97166; 97530; 97802; A4216

== ENCOUNTER → 2018-07-08 10:42 | Outpatient (CLI) | payer MEDICARE, OTHER, SELFPAY ==
[2018-07-07 18:29] VITALS: BMI 30.4
--- NOTE | 2018-07-08 10:46 | CT_ITS ---
STUDY: CT ABDOMEN AND PELVIS WITH CONTRAST REASON FOR EXAM: Male, 78 years old. Dilated small bowel loops. RADIATION DOSAGE (If Supplied By Facility): CTDIvol = ( 13.73 ) mGy, DLP = ( 1374.35 ) mGycm TECHNIQUE: Transaxial images were obtained from the dome of the diaphragm to the symphysis pubis with oral contrast. 100 IV/Oral Isovue 370 was administered. Sagittal and coronal images were reconstructed. Individualized dose optimization techniques were used for this CT. COMPARISON: Comparison is made with prior study dated December 02, 2014. FINDINGS: Left lower lobe infiltrate with small left pleural effusion. Mild increased markings at the right lung base. Coronary artery calcification. Mild cardiomegaly. An oral gastric tube is seen with the tip in the body of the stomach. Normal liver. The patient is status post cholecystectomy. The patient is status post splenectomy. The previously seen large cystic mass in the left upper quadrant has been resected. There is a residual 5.7 cm x 5.1 cm hypodensity with the surgical sutures in the left upper quadrant most likely secondary to postsurgical changes. This abuts the tail the pancreas and may represent a pancreatic pseudocyst. The remainder of the pancreas is unremarkable. Normal bilateral adrenal glands. Normal right kidney. Normal left kidney. Normal visualized stomach. Normal small intestine. There is a redundant rectosigmoid colon. The entire colon is distended with fluid and gas. The small bowel loops are not dilated. [place] syndrome should be ruled out. The appendix is visualized and appears normal. There is scattered atherosclerotic calcification of the abdominal aorta, without a demonstrated aneurysm. Normal inferior vena cava. Normal retroperitoneum. Normal urinary bladder. Normal abdominal wall. There are diffuse degenerative changes of the visualized lumbar spine. Straightening of the normal lumbar lordosis. CT/Abdomen/Pelvis WITH Contrast IMPRESSION: Distention of the entire colon with redundancy of the rectosigmoid colon. The small bowel loops are not dilated. Electronically Signed: Jasper Smith, at 13:45 EDT , Service support ,
== END ==
PROVIDERS: Family Provider Family Medicine Geriatric Medicine; PCP Family Medicine Geriatric Medicine; Referring Provider Internal Medicine; Visit Provider Internal Medicine
DX: K63.89 Other specified diseases of intestine (principal)
CPT/HCPCS: 74177; Q9967

== ENCOUNTER 2018-07-14 22:56 | Inpatient (IN) | payer MEDICARE, OTHER, SELFPAY ==
[2018-07-07 18:29] VITALS: BMI 30.4
[2018-07-14] VITALS (7 sets, daily range): BP systolic 149–156; BP diastolic 82–114; PULSE 115–154; RESP 12–36; TEMP 36.2–36.4; O2SAT 90–99; BMI 26.2
--- NOTE | 2018-07-14 22:58 | EKG12_ITS ---
Test Reason : Blood Pressure : / mmHG Vent. Rate : 142 BPM Atrial Rate : 129 BPM P-R Int : 000 ms QRS Dur : 106 ms QT Int : 316 ms P-R-T Axes : 000 -19 150 degrees QTc Int : 486 ms Atrial fibrillation /flutter with rapid ventricular response Incomplete left bundle branch block Minimal voltage criteria for LVH, may be normal variant Abnormal ECG Confirmed by LUCAS HAMILTON, SARA ([id number]), electronic news gathering editor LEONARDO BACA ([id number]) on 07/16/2018 1:31:30 PM Referred By: Debbie Li Confirmed By:SARA ZAVALA MD
[2018-07-14] MEDS: Etomidate 20 MG/10 ML Vial IV (23:03)
[2018-07-14] MEDS: Rocuronium Bromide 50 MG/5 ML Vial 100 MG IV (23:03)
--- NOTE | 2018-07-14 23:06 | ED.VIS.GEN ---
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 He is transferred to [facility] for embolectomy. He was found not to be a candidate for embolectomy. He underwent craniotomy. his hospital course was complicated by aspiration. He was transferred to the TCU unit from [facility]. Prior similar symptoms: Yes Recent Illness/Hospitalization: Yes - Past Medical History (1) Atrial fibrillation Status: Acute (2) Dysphagia following cerebral infarction Status: Acute (3) H/O colon cancer, stage III Status: Acute (4) H/O malignant neoplasm of pancreas Status: Acute (5) Obesity (BMI 30.0-34.9) Status: Acute (6) T2DM (type 2 diabetes mellitus) Status: Acute (7) Chronic ischemic right MCA stroke Status: Chronic (8) Chronic systolic CHF (congestive heart failure) Status: Chronic (9) HTN (hypertension) Status: Chronic Past Medical History - Allergies and Home Meds Allergies/Adverse Reactions: Allergies No Known Allergies Allergy (Verified 07/14/18 23:21) Primary Care Physician: Gerardo Fernandez Chi, MD [Primary Care Provider] - Prior records reviewed: Yes Surgical History: cholecystectomy, colectomy, - - 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 Negative for: EOMI, Scleral icterus ENT: Moist mucous membranes, No rhinorrhea, TM's clear Neck: Supple, Nontender, No lymphadenopathy, No JVD Cardiovascular: Regular rhythm, Normal S1, Normal S2 - She, Tachycardia Respiratory: Rales, Wheezing, Decreased Air Movement - Minimal to little movement of air on the left., Retractions. Negative for: No distress, CTA bilaterally Abdomen: Soft, Nondistended, No masses, Hypoactive bowel sounds Rectal: Deferred : - - Patient with indwelling Epstein and dark colored urine. Extremities: Edema Skin: Pallor. Negative for: Normal color, Cyanosis, Jaundice Neurological: - - GCS 3 Psychological: - - unable to determine Diagnostic/Tx/Re-eval Chest X-Ray - ED: 1 View, Read by ED Physician, Normal, Mediastinum, Bony Structures, - - Endotracheal tube is in proper position. OG is in proper position. No obvious infiltrate noted. Arterial blood gas on ventilator reveals a pH of 7.20, PCO2 58.3, PaO2 of 159, base excess -5 bicarb 23.1 with a 99% saturation on the following vent settings mode AC tidal volume 500 rate 12 FiO2 1.0 and PEEP of 5 this represents a respiratory and metabolic acidosis with AA gradient. 07/14/18 23:15 Chest 1 View (Portable) [RAD] Stat Laboratory Results 07/14/18 07/14/18 07/14/18 22:45 22:45 23:20 WBC 12.4 H RBC 4.46 L Hgb 11.5 L Hct 36.9 L MCV 82.7 MCH 25.8 L MCHC 31.2 L RDW 17.9 H RDW Differential 53.0 H Plt Count 403 MPV 12.6 H Immature Gran % (Auto) 0.100 Neut % (Auto) 67.7 Lymph % (Auto) 21.6 Bailey % (Auto) 10.4 H Eos % (Auto) 0.0 Baso % (Auto) 0.2 Absolute Neuts (auto) 8.4 H Absolute Lymphs (auto) 2.69 Total Counted Not Reportable Diff Path Review May foll Platelet Estimate ADEQUATE Poikilocytosis 1+ Anisocytosis RARE Microcytosis RARE Tear Drop Cells RARE Ovalocytes RARE Acanthocytes (Spur) 1+ Schistocytes RARE Sodium 135 L Potassium 5.2 H Chloride 101 Carbon Dioxide 26.0 Anion Gap 8 BUN 49 H Creatinine 1.22 Estim Creat Clear Calc 56.54 Est GFR (MDRD) Af Amer 74 Est GFR (MDRD) Non-Af 61 BUN/Creatinine Ratio 40.2 H Glucose 188 H Calcium 8.0 L Total Bilirubin 0.60 AST 45 H ALT 44 Alkaline Phosphatase 112 Total Protein 7.2 Albumin 2.5 L Globulin 4.7 H Albumin/Globulin Ratio 0.5 L Urine Color Brown Urine Clarity Cloudy Urine pH 5.0 Ur Specific [place] 1.025 Urine Protein 100 H Urine Glucose (UA) Normal Urine Ketones 5 H Urine Occult Blood 250 H Urine Nitrite Positive H Urine Bilirubin 3 H Urine Urobilinogen 8 H Ur Leukocyte Esterase 100 H Urine RBC > 100 SEEN Urine WBC 10-25 SEEN Ur Squamous Epith Cells 0 SEEN Ur Transition Epith Cell 0-5 SEEN Calcium Oxalate Crystal RARE Urine Bacteria 4+ Urine Mucus 0 SEEN - Rhythm Strip Rhythm Strip: A-fib Rate: 127 Ectopy: None - EKG Initial EKG Interpretation: Atrial Fibrillation - Ventricular rate is 142. There is evidence of an incomplete left bundle branch block. Computer is reading subendocardial injury pattern possibly laterally. The lateral changes are more pronounced than prior EKG dated June 18, 2018. - Medical Decision Making Chest x-ray was obtained to evaluate for pneumothorax. Concern patient aspirated. I was informed by Shahida the C++ QUANT DEVELOPER nurse that he leaves the left and may have aspirated with gastric contents into the left main bronchus and reason for decreased breath sounds. He has wheezing and rales noted on the right. Will administer Zosyn after appropriate blood work was obtained and blood cultures. He is a full code. Since his oxygenation is only 90% on nonrebreather and he is in respiratory distress with a GCS of 3 which is markedly depressed from his baseline he was oral tracheal intubated since there are no family members here. Hair Rooting Machine Operator will contact family. Patient's ventricular rate was not treated because this is felt to be secondary to his respiratory failure. Family is present. Son was informed of the events that led to his father's deterioration and need for intubation. He was told that patient will be on a ventilator for a period of time and potentially need a tracheostomy. Confirmed that he is full code. - Critical Care Time Critical care time (excluding procedures): 30-74 minutes, Discussing w/Patient &/or Family/Recruitment Officer, Discussing w/Consultants, Arranging Admission or Transfer, Performing Direct Patient Care at Bedside Procedures Procedure(s): Patient was placed on nonrebreather. He was treated with 20 mg etomidate and 100 mg rocuronium. Cords were not visualized secondary to gastric contents noted in the posterior pharynx. Significant amount of tube feed was suctioned from the trachea. Once this was performed he was intubated successfully first attempt with a 7.5 endotracheal tube. Condensation was noted endotracheal tube. Breath sounds were still diminished on the left. Capnometer with appropriate color change. Nursing staff informed me they were unable to pass OG. Using laryngoscope OG was passed by me. ED Disposition - Plan for ED Patient: Disposition: Acute Care Hospital [facility] Diagnosis: Aspiration of food, Atrial fibrillation with RVR, Hyperglycemia, Acute respiratory failure with hypoxia and hypercapnia, Lactic acidosis, Urinary tract infection, Severe sepsis Referrals: Gerardo Fernandez Chi, MD [Primary Care Provider] -
--- NOTE | 2018-07-14 23:10 | ED.DCSUM_ITS ---
History of Present Illness Chief Complaint: Shortness of Breath Informant: - - RACING CAR DRIVER circuit breaker supervisor informed me of patient's history and events leading to transport to ER from TCU Limited by: Coma Onset: Today Context: Sudden Onset Timing: Continuous Quality: Aspirated tube feed Location: TCU Current Severity: Severe Maximum Severity: Severe Worsened by: Aspiration Relieved by: Intubation Associated Symptoms: Unable to determine Narrative: Patient was initially evaluated at [facility] for middle cerebral artery stroke. He is transferred to [facility] for embolectomy. He was found not to be a candidate for embolectomy. He underwent craniotomy. his hospital course was complicated by aspiration. He was transferred to the TCU unit from [facility]. Prior similar symptoms: Yes Recent Illness/Hospitalization: Yes - Past Medical History (1) Atrial fibrillation Status: Acute (2) Dysphagia following cerebral infarction Status: Acute (3) H/O colon cancer, stage III Status: Acute (4) H/O malignant neoplasm of pancreas Status: Acute (5) Obesity (BMI 30.0-34.9) Status: Acute (6) T2DM (type 2 diabetes mellitus) Status: Acute (7) Chronic ischemic right MCA stroke Status: Chronic (8) Chronic systolic CHF (congestive heart failure) Status: Chronic (9) HTN (hypertension) Status: Chronic Past Medical History - Allergies and Home Meds Allergies/Adverse Reactions: Allergies No Known Allergies Allergy (Verified 07/14/18 23:21) Primary Care Physician: Gerardo Fernandez Chi, MD [Primary Care Provider] - Prior records reviewed: Yes Surgical History: cholecystectomy, colectomy, - - 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 Negative for: EOMI, Scleral icterus ENT: Moist mucous membranes, No rhinorrhea, TM's clear Neck: Supple, Nontender, No lymphadenopathy, No JVD Cardiovascular: Regular rhythm, Normal S1, Normal S2 - She, Tachycardia Respiratory: Rales, Wheezing, Decreased Air Movement - Minimal to little movement of air on the left., Retractions. Negative for: No distress, CTA bilaterally Abdomen: Soft, Nondistended, No masses, Hypoactive bowel sounds Rectal: Deferred : - - Patient with indwelling Epstein and dark colored urine. Extremities: Edema Skin: Pallor. Negative for: Normal color, Cyanosis, Jaundice Neurological: - - GCS 3 Psychological: - - unable to determine Diagnostic/Tx/Re-eval Chest X-Ray - ED: 1 View, Read by ED Physician, Normal, Mediastinum, Bony Struc tures, - - Endotracheal tube is in proper position. OG is in proper position. No obvious infiltrate noted. Arterial blood gas on ventilator reveals a pH of 7.20, PCO2 58.3, PaO2 of 159, base excess -5 bicarb 23.1 with a 99% saturation on the following vent settings mode AC tidal volume 500 rate 12 FiO2 1.0 and PEEP of 5 this represents a respiratory and metabolic acidosis with AA gradient. 07/14/18 23:15 Chest 1 View (Portable) [RAD] Stat Laboratory Results 07/14/18 07/14/18 07/14/18 22:45 22:45 23:20 WBC 12.4 H RBC 4.46 L Hgb 11.5 L Hct 36.9 L MCV 82.7 MCH 25.8 L MCHC 31.2 L RDW 17.9 H RDW Differential 53.0 H Plt Count 403 MPV 12.6 H Immature Gran % (Auto) 0.100 Neut % (Auto) 67.7 Lymph % (Auto) 21.6 [place] % (Auto) 10.4 H Eos % (Auto) 0.0 Baso % (Auto) 0.2 Absolute Neuts (auto) 8.4 H Absolute Lymphs (auto) 2.69 Total Counted Not Reportable Diff Path Review May foll Platelet Estimate ADEQUATE Poikilocytosis 1+ Anisocytosis RARE Microcytosis RARE Tear Drop Cells RARE Ovalocytes RARE Acanthocytes (Spur) 1+ Schistocytes RARE Sodium 135 L Potassium 5.2 H Chloride 101 Carbon Dioxide 26.0 Anion Gap 8 BUN 49 H Creatinine 1.22 Estim Creat Clear Calc 56.54 Est GFR (MDRD) Af Amer 74 Est GFR (MDRD) Non-Af 61 BUN/Creatinine Ratio 40.2 H Glucose 188 H Calcium 8.0 L Total Bilirubin 0.60 AST 45 H ALT 44 Alkaline Phosphatase 112 Total Protein 7.2 Albumin 2.5 L Globulin 4.7 H Albumin/Globulin Ratio 0.5 L Urine Color Brown Urine Clarity Cloudy Urine pH 5.0 Ur Specific [place] 1.025 Urine Protein 100 H Urine Glucose (UA) Normal Urine Ketones 5 H Urine Occult Blood 250 H Urine Nitrite Positive H Urine Bilirubin 3 H Urine Urobilinogen 8 H Ur Leukocyte Esterase 100 H Urine RBC > 100 SEEN Urine WBC 10-25 SEEN Ur Squamous Epith Cells 0 SEEN Ur Transition Epith Cell 0-5 SEEN Calcium Oxalate Crystal RARE Urine Bacteria 4+ Urine Mucus 0 SEEN - Rhythm Strip Rhythm Strip: A-fib Rate: 127 Ectopy: None - EKG Initial EKG Interpretation: Atrial Fibrillation - Ventricular rate is 142. There is evidence of an incomplete left bundle branch block. Computer is reading subendocardial injury pattern possibly laterally. The lateral changes are more pronounced than prior EKG dated June 18, 2018. - Medical Decision Making Chest x-ray was obtained to evaluate for pneumothorax. Concern patient aspirated. I was informed by Shahida the RACING CAR DRIVER nurse that he leaves the left and may have aspirated with gastric contents into the left main bronchus and reason for decreased breath sounds. He has wheezing and rales noted on the right. Will administer Zosyn after appropriate blood work was obtained and blood cultures. He is a full code. Since his oxygenation is only 90% on nonrebreather and he is in respiratory distress with a GCS of 3 which is markedly depressed from his baseline he was oral tracheal intubated since there are no family members here. [employer] Senior Officer will contact family. Patient's ventricular rate was not treated because this is felt to be secondary to his respiratory failure. Family is present. Son was informed of the events that led to his father's deterioration and need for intubation. He was told that patient will be on a ventilator for a period of time and potentially need a tracheostomy. Confirmed that he is full code. - Critical Care Time Critical care time (excluding procedures): 30-74 minutes, Discussing w/Patient &/or Family/Operations And Intelligence Assistant, Discussing w/Consultants, Arranging Admission or Transfer, Performing Direct Patient Care at Bedside Procedures Procedure(s): Patient was placed on nonrebreather. He was treated with 20 mg etomidate and 100 mg rocuronium. Cords were not visualized secondary to gastric contents noted in the posterior pharynx. Significant amount of tube feed was suctioned from the trachea. Once this was performed he was intubated successfully first attempt with a 7.5 endotracheal tube. Condensation was noted endotracheal tube. Breath sounds were still diminished on the left. Capnometer with appropriate color change. Nursing staff informed me they were unable to pass OG. Using laryngoscope OG was passed by me. ED Disposition - Plan for ED Patient: Disposition: Acute Care Hospital [facility] Diagnosis: Aspiration of food, Atrial fibrillation with RVR, Hyperglycemia, Acute respiratory failure with hypoxia and hypercapnia, Lactic acidosis, Urinary tract infection, Severe sepsis Referrals: Gerardo Fernandez Chi, MD [Primary Care Provider] -
--- NOTE | 2018-07-14 23:15 | RAD_ITS ---
STUDY: X-RAY CHEST REASON FOR EXAM: Male, 78 years old. Endotracheal tube and orogastric tube placement. TECHNIQUE: AP portable chest. COMPARISON: June 18, 2018. FINDINGS: Endotracheal tube tip 2.7 cm above the patrick. There are 2 nasogastric/orogastric tubes present both with the tips below the left hemidiaphragm, with the tubes looped in the stomach and continuing inferiorly. The tips of the tubes are located within the proximal gastric body. The lungs are clear and expanded. There is no demonstrated pleural abnormality. Stable mild cardiomegaly. Normal mediastinum and casa. Normal visualized pulmonary arteries. Normal visualized aortic arch and descending thoracic aorta. Normal visualized thoracic spine. Normal visualized ribs, clavicles, and shoulders. There is no demonstrated abnormality of the visualized soft tissue structures of the upper abdomen. RAD/Chest 1 View (Portable) IMPRESSION: Endotracheal tube and nasogastric/orogastric tubes in their expected locations. Stable mild cardiomegaly. Lungs are clear. Electronically Signed: Hang Valdez MD at 1:35 EDT , Service support ,
[2018-07-14 23:23] LABS: ALB/GLOB Ratio 0.5 RATIO (0.9-2.4); AST(SGOT) 45 U/L (15-37); Alanine Aminotransfer ALT/SGPT 44 U/L (16-61); Albumin, Serum 2.5 g/dL (3.2-5.0); Alkaline Phosphatase 112 U/L (45-117); Anion Gap 8 (5-15); BUN 49 mg/dL (7-18); BUN/Creat Ratio 40.2 RATIO (10-20); Chloride 101 mmol/L (98-107); Creatinine, Serum 1.22 mg/dL (0.70-1.30); EST Glomerular Filtration Rate 61 mL/min (>60); Est Glom Filt Rate - Afr Amer 74 mL/min (>60); Estimated Creatinine Clearance 56.54 ml/min; Globulin 4.7 g/dL (2.2-4.2); Glucose 188 mg/dL (74-106); Potassium 5.2 mmol/L (3.5-5.1); Protein, Total 7.2 g/dL (6.4-8.2); Sodium Level 135 mmol/L (136-145)
[2018-07-14 23:25] LABS: Absolute Lymphocyte Count 2.69 X10^3/ul (0.83-4.51); Absolute Neutrophil Count 8.4 X10^3/uL (2.0-7.7); Basophil# 0.03 X10^3/uL; Basophil% 0.2 % (0-1); Hematocrit 36.9 % (40-54); Hemoglobin 11.5 g/dl (13.0-16.5); Lymphocyte # 2.69 X10^3/ul (4.0); Lymphocyte % 21.6 % (19-41); Mean Corp Hgb Conc 31.2 g/gl (32-36); Mean Corpuscular Hgb 25.8 pg (27.0-32.0); Mean Corpuscular Volume 82.7 fL (80-94); Mean Platelet Vol. 12.6 fl (6.2-12.0); Monocyte# 1.29 X10^3/uL; Monocyte% 10.4 % (0-10); Neutrophil # 8.41 X10^3/uL (2.7-7.7); Neutrophil % 67.7 % (47-70); Platelet Count 403 K/mm3 (150-450); RBC Distribution Width CV 17.9 % (11.6-14.6); Red Blood Count 4.46 M/mm3 (4.6-6.2); White Blood Count 12.4 K/mm3 (4.4-11.0)
[2018-07-14 23:28] LABS: Mucous, Urine 0 SEEN /hpf (<or=2+); Squamous Epithelial Cells - UA 0 SEEN /hpf (0-5)
[2018-07-14 23:34] LABS: Color, Urine Brown (Yellow); Glucose, Dipstick Normal (Normal); Ketone-Dipstick 5 mg/dl (Negative); Leukocyte Esterase-Dipstick 100 /ul (Negative); Nitrite-Dipstick Positive (Negative); Occult Blood-Urine 250 /ul (Negative); Protein-Dipstick 100 mg/dl (Negative); Specific Gravity, Urine 1.025 (1.002-1.030); Urine Clarity Cloudy (Clear); Urine Urobilinogen 8 mg/dl (Normal)
[2018-07-14 23:38] LABS: Urine Bilirubin Dipstick 3 mg/dL (Negative)
[2018-07-14 23:40] LABS: POSITIVE COUNT NO; POSITIVE DIFFERENTIAL NO
[2018-07-14 23:41] LABS: Differential Indicated SCAN CRITERIA MET; POSITIVE MORPHOLOGY YES
[2018-07-14 23:55] LABS: Red Blood Cells-Urine > 100 SEEN /hpf (0-5)
[2018-07-14 23:57] LABS: Bacteria 4+ /hpf (None Seen)
[2018-07-14 23:58] LABS: Transitional Epithelial - Ur 0-5 SEEN /hpf (0-5); White Blood Cells 10-25 SEEN /hpf (0-5)
[2018-07-15] VITALS (33 sets, daily range): BP systolic 57–165; BP diastolic 30–100; PULSE 96–137; RESP 16–41; TEMP 36.2–36.4; O2SAT 90–100; BMI 24.5; BMI 24.6
[2018-07-15] LABS: Calcium Oxalate Crystals Ur RARE /hpf (<or=2+)
--- NOTE | 2018-07-15 00:01 | CPS ---
treatment given to patient on TCU, just before rapid response was called.
--- NOTE | 2018-07-15 00:12 | ED.RN ---
awaiting to start zosyn until 2nd set of cultures drawn.
[2018-07-15 00:14] LABS: Platelet Estimate ADEQUATE (ADEQ)
--- NOTE | 2018-07-15 00:14 | CPS ---
results read back to Dr. Krishna
[2018-07-15 00:15] LABS: Acanthocytes 1+; Anisocytosis RARE; Microcytosis RARE; Ovalocyte RARE; Poikilocytosis 1+; Schistocytes RARE
[2018-07-15 00:16] LABS: Tear Drop Cell RARE
[2018-07-15 00:24] LABS: International Normalized Ratio 1.2; Prothrombin Time (Protime)PT. 15.3 SECONDS (11.7-14.9)
[2018-07-15 00:25] LABS: Partial Thromboplast Time 27.8 Seconds (24.1-36.2)
[2018-07-15 00:26] LABS: Base Excess -5 mmol/L (-2 to +2); Bicarbonate 23.1 mmol/L (22-26); Blood Gas Specimen Type ART; FI02 100; Mode A-C; O2 Delivery Device Vent; PEEP 5; PO2 159 mmHG (75-100); RR 12; SITE L Radial; SO2 99 % (95-99); Total Carbon Dioxide 25 mmol/L; Vt 500; pCO2 58.3 mmHg (35-45); pH 7.21 (7.35-7.45)
--- NOTE | 2018-07-15 01:15 | HP.PCM_ITS ---
Problem List (1) Chronic ischemic right MCA stroke Status: Chronic (2) Atrial fibrillation Status: Chronic (3) H/O colon cancer, stage III Status: Chronic (4) H/O malignant neoplasm of pancreas Status: Chronic (5) HTN (hypertension) Status: Chronic (6) T2DM (type 2 diabetes mellitus) Status: Chronic (7) Chronic systolic CHF (congestive heart failure) Status: Chronic (8) Acute respiratory failure with hypoxia and hypercapnia Status: Acute (9) Severe sepsis Status: Acute History of Present Illness Date of Admission: 07/15/18 Chief Complaint: Shortness of breath. The patient is a 78 year old M with complicated past and recent medical history was transferred from TCU down to the emergency room because of shortness of breath. The rapid response team was called to TCU because patient became very short of breath and apparently aspirated. At this time, patient is intubated and on mechanical ventilation and his history is limited. Patient's son and his were at the bedside. Patient was presented to this hospital emergency department on June 18, 2018 with weakness and respiratory distress, was intubated, found to have acute right MCA embolic stroke as well as aspiration pneumonia, new onset A. fib with RVR and he was transferred to [facility] for further treatment. At [facility], patient deemed to be not a candidate for any endovascular intervention and plan was to be managed conservatively. His hospital stay at [facility] complicated by development of severe cerebral edema with significant mass-effect and intermittent brain herniation and patient underwent hemicraniectomy for surgical decompression. Also, his hospital course at [facility] complicated by aspiration pneumonia with respiratory failure and septic shock that required administration of IV vasopressors. The acute right MCA stroke left the patient with left side hemiparesis and dysphagia. He has been on tube feeds to TCU. He had a history of type 2 diabetes mellitus and he has been on insulin both Lantus and sliding scale and his blood sugar has been under fair control. He has a history of colon cancer status post colectomy and chemotherapy and currently, it is in remission. He had a history of pancreatic cancer and according to the [id number], it is in remission without any prior treatment with chemotherapy or surgery. During his recent hospital stay, he was found to have A. fib with RVR for which she was started on Coreg for rate control and Eliquis for anticoagulation. In the emergency department, patient was intubated and started on mechanical ventilation because of severe respiratory distress and because of pH 7.21. He was afebrile, was in A. fib with RVR with heart rate of up to 150s, blood pressure was stable. Routine blood work was remarkable for mild leukocytosis, hemoglobin of 11.5 g/dL, potassium 5.2. His LFT was unremarkable. Troponin was negative. Lactic acid was 3. EKG revealed A. fib with RVR, no acute ischemic changes. Urinalysis revealed cloudy urine, positive for nitrite and leukocyte esterase, there was more than 100 RBCs, 10-25 WBCs and 4+ bacteria. Chest x-ray revealed left lung infiltrate. He is being admitted for aspiration pneumonia complicated by severe sepsis, acute respiratory failure and respiratory acidosis, found to have A. fib with RVR and had a recent history of right MCA embolic stroke that was complicated by severe brain edema with mass-effect and brain herniation status post surgical decompression with hemicraniectomy. 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 Allergies No Known Allergies Allergy (Verified 07/14/18 23:21) Home Medications: Ambulatory Orders Medication Instructions Recorded Lisinopril [Zestril] 10 mg GT DAILY 12/06/14 Albuterol Aerosols [Ventolin 2.5 mg INHALATION Q4H PRN PRN 07/07/18 Aerosols] Apixaban [Eliquis] 5 mg GT BID 07/07/18 Aspir-Low 81 mg GT DAILY 07/07/18 Bisacodyl 10 mg RC DAILY PRN 07/07/18 Carvedilol 3.125 mg GT BID 07/07/18 Docusate Sodium [Stool Softener] 50 mg GT BID 07/07/18 Enoxaparin [Lovenox] 40 mg SC DAILY@0600 07/07/18 Insulin Glargine [Lantus (BKC)] 24 units SC DAILY 07/07/18 Lidocaine [Lidoderm Patch] 1 patch TOPICAL DAILY 07/07/18 Lisinopril [Prinivil] 10 mg GT DAILY 07/07/18 Melatonin/Pyridoxine HCl (B6) 2 each GT QHS 07/07/18 [Melatonin 3 mg Tablet] Nystatin 5 ml PO BID 07/07/18 Polyethylene Glycol 3350 17 gm GT DAILY 07/07/18 Senna [Senokot] 1 tablet GT BID 07/07/18 Sodium Chloride For Inhalation 4 ml IH BID 07/07/18 [Sodium Chloride] Insulin Lispro [Humalog KwikPen] See Protocol SC Q6H 07/14/18 Metoclopramide [Reglan] 10 mg PO 4X/DAY 07/15/18 Surgical History: cholecystectomy, colectomy, - - s/p clipping of anterior comm artery aneurysm 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 colectomy for stage III colon ca Psychiatric History: No pertinent psych hx Lives: Spouse/ Significant Other, - - Presents from U Smoking Status: Current some day smoker Tobacco Use: Cigarettes Alcohol: Rare Drugs: None - *Family History Maternal Family History: Family History (Last Updated 07/08/18 @ 11:03 by Beatriz Munguia MD) Other Colon cancer Heart disease History Items: No pertinent history Paternal Family History: Family History (Last Updated 07/08/18 @ 11:03 by Beatriz Munguia MD) Other Colon cancer Heart disease History Items: No pertinent history Review of Systems Constitutional: Reports: - - Unobtainable, patient is intubated, sedated. Eyes: Reports: - - Unobtainable, patient is intubated, sedated. HEENT: Reports: - - Unobtainable, patient is intubated, sedated. Cardiovascular: Reports: - - Unobtainable, patient is intubated, sedated. Respiratory: Reports: - - Unobtainable, patient is intubated, sedated. Gastrointestinal: Reports: - - Unobtainable, patient is intubated, sedated. Genitourinary: Reports: - - Unobtainable, patient is intubated, sedated. Musculoskeletal: Reports: - - Unobtainable, patient is intubated, sedated. Skin: Reports: - - Unobtainable, patient is intubated, sedated. Neurological: Reports: - - Unobtainable, patient is intubated, sedated. VTE Information - Inpt Only VTE Present on Admission: No VTE Mechan Device Prophylaxis: None VTE Pharm Prophylaxis ordered?: Yes Patient Problems: Active and Suspected Problems (Last Updated 07/08/18 @ 11:00 by Beatriz Munguia MD) Atrial fibrillation with RVR (Acute) Acute respiratory failure with hypoxia and hypercapnia (Acute) Lactic acidosis (Acute) Urinary tract infection (Acute) Severe sepsis (Acute) - Physical Exam General: - - Patient is intubated, sedated. HEENT: Atraumatic, PERRLA, EOMI, Normocephalic Oral: Moist Mucosa, No Gingival or Mucosal Lesions/ Ulcerations Neck: Supple, No JVD, Negative Carotid Bruits, Trachea Midline, Thyroid Normal Size and Texture Lungs: Clear to auscultation, No wheeze, Diminished, Rales, Rhonchi, Short of Breath, - - Decreased breath sounds on the right side, crackles, rhonchi. Cardiovascular: Normal S1, Normal S2, No murmurs, PMI Normal, Irregular Rate, Tachycardic Abdomen: Bowel Sounds Present, Soft, Non Tender, Non-Distended, No Hepato- splenomegaly Extremities: No clubbing, No cyanosis, No edema Skin: No rashes, No breakdown Lymphatic: No Cervical, Supraclavicular, or Inguinal Adenopathy Neurological: - - Patient is sedated, unable to assess. Psych/Mental Status: - - Unable to assess. Vital Signs Temp Pulse Resp BP Pulse Ox 97.6 F L 137 H 16 112/92 H 97 07/14/18 23:30 07/15/18 00:30 07/15/18 00:30 07/15/18 00:02 07/15/18 00:30 Oxygen Delivery Method Mechanical Ventilator Weight: 193 lb 1.999 oz Body Mass Index (BMI) 26.2 Finger Stick Blood Glucose 261 Laboratory Tests Past 24 Hrs 07/14/18 07/14/18 07/14/18 22:45 22:45 23:20 WBC 12.4 H RBC 4.46 L Hgb 11.5 L Hct 36.9 L MCV 82.7 MCH 25.8 L MCHC 31.2 L RDW 17.9 H RDW Differential 53.0 H Plt Count 403 MPV 12.6 H Immature Gran % (Auto) 0.100 Neut % (Auto) 67.7 Lymph % (Auto) 21.6 [place] % (Auto) 10.4 H Eos % (Auto) 0.0 Baso % (Auto) 0.2 Absolute Neuts (auto) 8.4 H Absolute Lymphs (auto) 2.69 Total Counted Not Reportable Diff Path Review May foll Platelet Estimate ADEQUATE Poikilocytosis 1+ Anisocytosis RARE Microcytosis RARE Tear Drop Cells RARE Ovalocytes RARE Acanthocytes (Spur) 1+ Schistocytes RARE PT INR APTT Specimen Type Sample Site pH Bicarbonate Actual POC Total CO2 Base Excess O2 Saturation O2 % ABG pCO2 ABG pO2 Félix Test Respiration Rate O2 Delivery Device Minute Volume Vent Mode Tidal Volume POC PEEP Blood Gas Notified Whom Sodium 135 L Potassium 5.2 H Chloride 101 Carbon Dioxide 26.0 Anion Gap 8 BUN 49 H Creatinine 1.22 Estim Creat Clear Calc 56.54 Est GFR (MDRD) Af Amer 74 Est GFR (MDRD) Non-Af 61 BUN/Creatinine Ratio 40.2 H Glucose 188 H Lactic Acid Calcium 8.0 L Total Bilirubin 0.60 AST 45 H ALT 44 Alkaline Phosphatase 112 Troponin I Total Protein 7.2 Albumin 2.5 L Globulin 4.7 H Albumin/Globulin Ratio 0.5 L Urine Color Brown Urine Clarity Cloudy Urine pH 5.0 Ur Specific [place] 1.025 Urine Protein 100 H Urine Glucose (UA) Normal Urine Ketones 5 H Urine Occult Blood 250 H Urine Nitrite Positive H Urine Bilirubin 3 H Urine Urobilinogen 8 H Ur Leukocyte Esterase 100 H Urine RBC > 100 SEEN Urine WBC 10-25 SEEN Ur Squamous Epith Cells 0 SEEN Ur Transition Epith Cell 0-5 SEEN Calcium Oxalate Crystal RARE Urine Bacteria 4+ Urine Mucus 0 SEEN 07/14/18 07/15/18 07/15/18 23:44 00:00 00:09 WBC RBC Hgb Hct MCV MCH MCHC RDW RDW Differential Plt Count MPV Immature Gran % (Auto) Neut % (Auto) Lymph % (Auto) [place] % (Auto) Eos % (Auto) Baso % (Auto) Absolute Neuts (auto) Absolute Lymphs (auto) Total Counted Diff Path Review Platelet Estimate Poikilocytosis Anisocytosis Microcytosis Tear Drop Cells Ovalocytes Acanthocytes (Spur) Schistocytes PT 15.3 H INR 1.2 APTT 27.8 Specimen Type Sample Site pH Bicarbonate Actual POC Total CO2 Base Excess O2 Saturation O2 % ABG pCO2 ABG pO2 Félix Test Respiration Rate O2 Delivery Device Minute Volume Vent Mode Tidal Volume POC PEEP Blood Gas Notified Whom Sodium Potassium Chloride Carbon Dioxide Anion Gap BUN Creatinine Estim Creat Clear Calc Est GFR (MDRD) Af Amer Est GFR (MDRD) Non-Af BUN/Creatinine Ratio Glucose Lactic Acid 3.0 H Calcium Total Bilirubin AST ALT Alkaline Phosphatase Troponin I < 0.015 Total Protein Albumin Globulin Albumin/Globulin Ratio Urine Color Urine Clarity Urine pH Ur Specific [place] Urine Protein Urine Glucose (UA) Urine Ketones Urine Occult Blood Urine Nitrite Urine Bilirubin Urine Urobilinogen Ur Leukocyte Esterase Urine RBC Urine WBC Ur Squamous Epith Cells Ur Transition Epith Cell Calcium Oxalate Crystal Urine Bacteria Urine Mucus 07/15/18 00:15 WBC RBC Hgb Hct MCV MCH MCHC RDW RDW Differential Plt Count MPV Immature Gran % (Auto) Neut % (Auto) Lymph % (Auto) [place] % (Auto) Eos % (Auto) Baso % (Auto) Absolute Neuts (auto) Absolute Lymphs (auto) Total Counted Diff Path Review Platelet Estimate Poikilocytosis Anisocytosis Microcytosis Tear Drop Cells Ovalocytes Acanthocytes (Spur) Schistocytes PT INR APTT Specimen Type ART Sample Site L Radial pH 7.21 L Bicarbonate Actual 23.1 POC Total CO2 25 Base Excess -5 L O2 Saturation 99 O2 % 100 ABG pCO2 58.3 H ABG pO2 159 H Félix Test NA Respiration Rate 12 O2 Delivery Device Vent Minute Volume 6.00 Vent Mode A-C Tidal Volume 500 POC PEEP 5 Blood Gas Notified Whom ED Sodium Potassium Chloride Carbon Dioxide Anion Gap BUN Creatinine Estim Creat Clear Calc Est GFR (MDRD) Af Amer Est GFR (MDRD) Non-Af BUN/Creatinine Ratio Glucose Lactic Acid Calcium Total Bilirubin AST ALT Alkaline Phosphatase Troponin I Total Protein Albumin Globulin Albumin/Globulin Ratio Urine Color Urine Clarity Urine pH Ur Specific [place] Urine Protein Urine Glucose (UA) Urine Ketones Urine Occult Blood Urine Nitrite Urine Bilirubin Urine Urobilinogen Ur Leukocyte Esterase Urine RBC Urine WBC Ur Squamous Epith Cells Ur Transition Epith Cell Calcium Oxalate Crystal Urine Bacteria Urine Mucus Assessment/Plan All Active Problems (Last Updated 07/08/18 @ 11:00 by Beatriz Munguia MD) Atrial fibrillation with RVR (Acute) Acute respiratory failure with hypoxia and hypercapnia (Acute) Lactic acidosis (Acute) Urinary tract infection (Acute) Severe sepsis (Acute) This is a 78 years old male patient transferred from TCU because of worsening shortness of breath and aspirated on food, found to have findings consistent with severe sepsis secondary to aspiration pneumonia and also found to have A. fib with RVR and had a recent history of right MCA embolic stroke. #1 aspiration pneumonia/severe sepsis: Chest x-ray reviewed and he had another chest x-ray on June 18, 2018 that obviously revealed left lingular infiltrate consistent with aspiration pneumonia. Patient was treated with aspiration pneumonitis [facility] but apparently, he aspirated again as he was on tube feeds. His lactic acid is elevated. Plan: Admit to ICU, complete bedrest, n.p.o., cardiac monitoring, blood culture, urine culture, IV fluids, repeat lactic acid in 3 hours, start IV Zosyn, repeat CBC and BMP tomorrow morning, critical care consult, PT OT evaluation and treatment. #2 acute hypoxic and hypercapnic respiratory failure/respiratory acidosis: Secondary to above, on mechanical ventilation at this time. Plan: Continue mechanical ventilation, propofol for sedation, critical care consult, vent management protocol, bronchodilators, IV antibiotics as above. #3 A. fib with RVR: Recently diagnosed with A. fib with RVR, was on Coreg and Eliquis. EKG revealed A. fib with RVR, heart rate has been around 140s. Troponin is negative. Plan: Start IV Cardizem drip, hold Eliquis for now. #2 complicated with acute cystitis: Urinalysis reviewed, plan for urine culture, start IV Zosyn as above. #5 recent history of right MCA embolic stroke: With resultant left-sided hemiparesis and dysphagia, complicated by severe brain edema with mass-effect and herniation, status post rosalie-craniectomy for decompression that was done at [facility] around 2 weeks ago. Patient was on Eliquis for anticoagulation. Patient will probably need repeat CT scan brain when stable. #6 type 2 diabetes mellitus: Keep on n.p.o., Accu-Cheks every 6 hours, insulin sliding scale, hold Lantus for now. Blood pressure stable, #7 hypertension: Hold his home medications, IV hydralazine as needed. #8 chronic systolic CHF: Clinically stable, compensated. Medication will be held. #9 history of colon cancer: Status post surgery and chemotherapy, in remission. #10 history of pancreatic cancer: According to [id number], it is in remission, patient never been treated for it. #11 DVT prophylaxis: Subcu Lovenox. This note was generated with ipDatatel[employer] software. It may contain incorrect words, spelling, and punctuation that were not noted in checking the note before signing. Code Visit Inpatient E&M: 48919 Init Hosp L3
[2018-07-15] MEDS: Midazolam 2 MG/2 ML Syringe IV (01:21)
--- NOTE | 2018-07-15 01:50 | NURSING ---
Pt arrives to ICU. Pt ventilating without difficulty, decorticate posturing observed with shivering and guppy breathing. Mottling present from B/L feet to abd.
[2018-07-15] MEDS: Lactated Ringers 1,000 ML 999 ML IV ×3 (02:40→04:35)
--- NOTE | 2018-07-15 03:20 | RAD_ITS ---
STUDY: X-RAY - ABDOMEN/PELVIS REASON FOR EXAM: Male, 78 years old. Abdominal distention. TECHNIQUE: AP supine abdomen. COMPARISON: July 09, 2018. CT abdomen and pelvis July 08, 2018. FINDINGS: Normal visualized lung bases. Nasogastric tube tip in the gastric fundus. Colon is distended without significant change since prior study. There is no demonstrated free abdominal air. The visualized liver, spleen and kidneys are grossly normal in size and morphology. Normal soft tissue structures. Normal visualized osseous structures. RAD/Abdomen Single View (Portable) IMPRESSION: No significant change in appearance of distended colon. Electronically Signed: Hang Valdez MD at 5:36 EDT , Service support ,
[2018-07-15 03:50] LABS: Reflex Lactate? Y
[2018-07-15 03:53] LABS: Absolute Lymphocyte Count 0.93 X10^3/ul (0.83-4.51); Absolute Neutrophil Count 6.5 X10^3/uL (2.0-7.7); Basophil# 0.02 X10^3/uL; Basophil% 0.3 % (0-1); Hematocrit 34.3 % (40-54); Hemoglobin 10.6 g/dl (13.0-16.5); Lymphocyte # 0.93 X10^3/ul (4.0); Lymphocyte % 12.3 % (19-41); Mean Corp Hgb Conc 30.9 g/gl (32-36); Mean Corpuscular Hgb 25.4 pg (27.0-32.0); Mean Corpuscular Volume 82.3 fL (80-94); Monocyte# 0.07 X10^3/uL; Monocyte% 0.9 % (0-10); Neutrophil # 6.54 X10^3/uL (2.7-7.7); Neutrophil % 86.4 % (47-70); Platelet Count 219 K/mm3 (150-450); Red Blood Count 4.17 M/mm3 (4.6-6.2); White Blood Count 7.6 K/mm3 (4.4-11.0)
[2018-07-15 03:58] LABS: Differential Indicated SCAN CRITERIA MET; POSITIVE COUNT YES; POSITIVE DIFFERENTIAL NO; POSITIVE MORPHOLOGY YES
[2018-07-15 04:26] LABS: Anion Gap 9 (5-15); BUN 54 mg/dL (7-18); BUN/Creat Ratio 37.2 RATIO (10-20); Calcium,Total 7.2 mg/dL (8.5-10.1); Chloride 105 mmol/L (98-107); Creatinine, Serum 1.45 mg/dL (0.70-1.30); EST Glomerular Filtration Rate 50 mL/min (>60); Est Glom Filt Rate - Afr Amer 61 mL/min (>60); Estimated Creatinine Clearance 47.57 ml/min; Glucose 158 mg/dL (74-106); Potassium 5.9 mmol/L (3.5-5.1); Sodium Level 135 mmol/L (136-145)
[2018-07-15 04:33] LABS: Platelet Estimate ADEQUATE (ADEQ); Platelet Morphology LARGE; Red Cell Morphology NORM C+C NORMAL (NORM C&C)
--- NOTE | 2018-07-15 06:19 | PCM.CON.CC ---
Capacity - Capacity Assessment Tool Can the patient make a choice & communicate that choice?: No Can the patient understand benefits, risks and alternatives?: No Can the patient make a logical, rational choice?: No Is there an impending, emergent risk to the patient?: Yes Is there a Surrogate Available?: Yes i.e. close relative (spouse, child, parent, sibling)?: Yes Reason for Consult Date of Consultation: 07/15/18 Reason for Consultation: Acute respiratory failure/septic shock History of Present Illness: The patient is a 78-year-old male, with a history as outlined below, who was transferred from the TCU to the emergency department for evaluation on the evening of July 14 after he experienced an acute aspiration event, which led to a decompensated respiratory state. The patient was apparently receiving tube feeds via a small bore feeding tube due to his recent CVA. At approximately 2215, nursing documentation indicates that the patient was found with emesis emanating from his mouth. He was noted to be hypoxic and using accessory muscles. A rapid response team was called and the patient was subsequently transferred to the emergency department. In the ED, the patient was also noted to be in atrial fibrillation with a rapid ventricular rate. Due to the patient's refractory hypoxemia and tenuous respiratory status, he was emergently intubated. The patient was started on broad-spectrum antimicrobials and subsequently transferred to the medical intensive care unit for ongoing management. On June 18, the patient was evaluated in the emergency department due to weakness and respiratory failure. Subsequent work-up revealed evidence of an acute CVA with a large proximal right M1 occlusion. The patient was emergently transferred to the [facility] for potential embolectomy. At [facility], the patient was not deemed to be a candidate for any endovascular intervention. He was initially managed conservatively but then went on to develop severe cerebral edema with significant mass-effect, requiring hemicraniotomy for surgical decompression. His hospital course was also complicated by septic shock due to aspiration pneumonia. He was subsequently transferred to the transitional care unit on July 08. Overnight, the patient received supplemental IV fluid hydration per sepsis protocol. Unfortunately, the patient remained hypotensive. He was subsequently placed on levophed and eventually also had to be started on vasopressin, in an attempt to maintain hemodynamic stability. The patient currently only has peripheral IV access. I spoke with the family this morning regarding the need for central line placement. However, they are not wishing to pursue with any form of invasive procedure. They are awaiting the arrival of additional family members, at which time, they are tentatively planning for palliative withdrawal of life support. 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 Allergies No Known Allergies Allergy (Verified 07/14/18 23:21) Home Medications: Ambulatory Orders Medication Instructions Recorded Lisinopril [Zestril] 10 mg GT DAILY 12/06/14 Albuterol Aerosols [Ventolin 2.5 mg INHALATION Q4H PRN PRN 07/07/18 Aerosols] Apixaban [Eliquis] 5 mg GT BID 07/07/18 Aspir-Low 81 mg GT DAILY 07/07/18 Bisacodyl 10 mg RC DAILY PRN 07/07/18 Carvedilol 3.125 mg GT BID 07/07/18 Docusate Sodium [Stool Softener] 50 mg GT BID 07/07/18 Enoxaparin [Lovenox] 40 mg SC DAILY@0600 07/07/18 Insulin Glargine [Lantus (BKC)] 24 units SC DAILY 07/07/18 Lidocaine [Lidoderm Patch] 1 patch TOPICAL DAILY 07/07/18 Lisinopril [Prinivil] 10 mg GT DAILY 07/07/18 Melatonin/Pyridoxine HCl (B6) 2 each GT QHS 07/07/18 [Melatonin 3 mg Tablet] Nystatin 5 ml PO BID 07/07/18 Polyethylene Glycol 3350 17 gm GT DAILY 07/07/18 Senna [Senokot] 1 tablet GT BID 07/07/18 Sodium Chloride For Inhalation 4 ml IH BID 07/07/18 [Sodium Chloride] Insulin Lispro [Humalog KwikPen] See Protocol SC Q6H 07/14/18 Metoclopramide [Reglan] 10 mg PO 4X/DAY 07/15/18 Surgical History: cholecystectomy, colectomy, - - s/p clipping of anterior comm artery aneurysm 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 colectomy for stage III colon ca Psychiatric History: No pertinent psych hx Lives: Spouse/ Significant Other, - - Presents from TCU Smoking Status: Current some day smoker Tobacco Use: Cigarettes Alcohol: Rare Drugs: None - *Family History Maternal Family History: Family History (Last Updated 07/08/18 @ 11:03 by Beatriz Munguia MD) Other Colon cancer Heart disease History Items: No pertinent history Paternal Family History: Family History (Last Updated 07/08/18 @ 11:03 by Beatriz Munguia MD) Other Colon cancer Heart disease History Items: No pertinent history Review of Systems Unable to obtain accurate/complete ROS d/t: Due to current intubation and mechanical ventilation status. Objective: The patient's most recent lab work, culture data and imaging studies have all been personally reviewed. - Physical Exam General: - - Currently intubated and mechanically ventilated. Nonresponsive to verbal and noxious stimulation. HEENT: Atraumatic, PERRLA, Normocephalic, Sluggish Pupils Oral: Moist Mucosa, - - Endotracheal tube in place Neck: Supple, No Nodes, Trachea Midline Lungs: No rhonchi, No wheeze, No rales, Diminished, Tachypneic Cardiovascular: Normal S1, Normal S2, No murmurs, Tachycardic Abdomen: Soft, Non Tender, Non-Distended Extremities: No clubbing, No cyanosis, No edema Skin: No breakdown Musculoskeletal: No Tenderness to Palpation of Joints or Extremities Lymphatic: No Cervical, Supraclavicular, or Inguinal Adenopathy Neurological: - - The patient is currently nonresponsive off of all sedation. Vital Signs Temp Pulse Resp BP Pulse Ox 97.5 F L 120 H 16 74/50 L 95 07/15/18 01:50 07/15/18 04:38 07/15/18 04:38 07/15/18 03:30 07/15/18 04:38 Oxygen Delivery Method Mechanical Ventilator Weight: 181 lb 7.047 oz Body Mass Index (BMI) 24.5 Finger Stick Blood Glucose 261 Laboratory Tests Past 24 Hrs 07/14/18 07/14/18 07/14/18 22:45 22:45 23:20 WBC 12.4 H RBC 4.46 L Hgb 11.5 L Hct 36.9 L MCV 82.7 MCH 25.8 L MCHC 31.2 L RDW 17.9 H RDW Differential 53.0 H Plt Count 403 MPV 12.6 H Immature Gran % (Auto) 0.100 Neut % (Auto) 67.7 Lymph % (Auto) 21.6 [place] % (Auto) 10.4 H Eos % (Auto) 0.0 Baso % (Auto) 0.2 Absolute Neuts (auto) 8.4 H Absolute Lymphs (auto) 2.69 Total Counted Not Reportable Diff Path Review May foll Platelet Estimate ADEQUATE Plt Morphology Comment RBC Morphology Poikilocytosis 1+ Anisocytosis RARE Microcytosis RARE Tear Drop Cells RARE Ovalocytes RARE Acanthocytes (Spur) 1+ Schistocytes RARE PT INR APTT Specimen Type Sample Site pH Bicarbonate Actual POC Total CO2 Base Excess O2 Saturation O2 % ABG pCO2 ABG pO2 Félix Test Respiration Rate O2 Delivery Device Minute Volume Vent Mode Tidal Volume POC PEEP Blood Gas Notified Whom Sodium 135 L Potassium 5.2 H Chloride 101 Carbon Dioxide 26.0 Anion Gap 8 BUN 49 H Creatinine 1.22 Estim Creat Clear Calc 56.54 Est GFR (MDRD) Af Amer 74 Est GFR (MDRD) Non-Af 61 BUN/Creatinine Ratio 40.2 H Glucose 188 H Lactic Acid Calcium 8.0 L Total Bilirubin 0.60 AST 45 H ALT 44 Alkaline Phosphatase 112 Troponin I Total Protein 7.2 Albumin 2.5 L Globulin 4.7 H Albumin/Globulin Ratio 0.5 L Urine Color Brown Urine Clarity Cloudy Urine pH 5.0 Ur Specific [place] 1.025 Urine Protein 100 H Urine Glucose (UA) Normal Urine Ketones 5 H Urine Occult Blood 250 H Urine Nitrite Positive H Urine Bilirubin 3 H Urine Urobilinogen 8 H Ur Leukocyte Esterase 100 H Urine RBC > 100 SEEN Urine WBC 10-25 SEEN Ur Squamous Epith Cells 0 SEEN Ur Transition Epith Cell 0-5 SEEN Calcium Oxalate Crystal RARE Urine Bacteria 4+ Urine Mucus 0 SEEN 07/14/18 07/15/18 07/15/18 23:44 00:00 00:09 WBC RBC Hgb Hct MCV MCH MCHC RDW RDW Differential Plt Count MPV Immature Gran % (Auto) Neut % (Auto) Lymph % (Auto) [place] % (Auto) Eos % (Auto) Baso % (Auto) Absolute Neuts (auto) Absolute Lymphs (auto) Total Counted Diff Path Review Platelet Estimate Plt Morphology Comment RBC Morphology Poikilocytosis Anisocytosis Microcytosis Tear Drop Cells Ovalocytes Acanthocytes (Spur) Schistocytes PT 15.3 H INR 1.2 APTT 27.8 Specimen Type Sample Site pH Bicarbonate Actual POC Total CO2 Base Excess O2 Saturation O2 % ABG pCO2 ABG pO2 Félix Test Respiration Rate O2 Delivery Device Minute Volume Vent Mode Tidal Volume POC PEEP Blood Gas Notified Whom Sodium Potassium Chloride Carbon Dioxide Anion Gap BUN Creatinine Estim Creat Clear Calc Est GFR (MDRD) Af Amer Est GFR (MDRD) Non-Af BUN/Creatinine Ratio Glucose Lactic Acid 3.0 H Calcium Total Bilirubin AST ALT Alkaline Phosphatase Troponin I < 0.015 Total Protein Albumin Globulin Albumin/Globulin Ratio Urine Color Urine Clarity Urine pH Ur Specific [place] Urine Protein Urine Glucose (UA) Urine Ketones Urine Occult Blood Urine Nitrite Urine Bilirubin Urine Urobilinogen Ur Leukocyte Esterase Urine RBC Urine WBC Ur Squamous Epith Cells Ur Transition Epith Cell Calcium Oxalate Crystal Urine Bacteria Urine Mucus 07/15/18 07/15/18 07/15/18 00:15 03:35 03:35 WBC 7.6 RBC 4.17 L Hgb 10.6 L Hct 34.3 L MCV 82.3 MCH 25.4 L MCHC 30.9 L RDW 18.0 H RDW Differential 53.0 H Plt Count 219 MPV TNP Immature Gran % (Auto) 0.100 Neut % (Auto) 86.4 H Lymph % (Auto) 12.3 L [place] % (Auto) 0.9 Eos % (Auto) 0.0 Baso % (Auto) 0.3 Absolute Neuts (auto) 6.5 Absolute Lymphs (auto) 0.93 Total Counted Not Reportable Diff Path Review Platelet Estimate ADEQUATE Plt Morphology Comment LARGE RBC Morphology NORM C+C Poikilocytosis Anisocytosis Microcytosis Tear Drop Cells Ovalocytes Acanthocytes (Spur) Schistocytes PT INR APTT Specimen Type ART Sample Site L Radial pH 7.21 L Bicarbonate Actual 23.1 POC Total CO2 25 Base Excess -5 L O2 Saturation 99 O2 % 100 ABG pCO2 58.3 H ABG pO2 159 H Félix Test NA Respiration Rate 12 O2 Delivery Device Vent Minute Volume 6.00 Vent Mode A-C Tidal Volume 500 POC PEEP 5 Blood Gas Notified Whom ED Sodium 135 L Potassium 5.9 H Chloride 105 Carbon Dioxide 21.0 Anion Gap 9 BUN 54 H Creatinine 1.45 H Estim Creat Clear Calc 47.57 Est GFR (MDRD) Af Amer 61 Est GFR (MDRD) Non-Af 50 L BUN/Creatinine Ratio 37.2 H Glucose 158 H Lactic Acid Calcium 7.2 L Total Bilirubin AST ALT Alkaline Phosphatase Troponin I Total Protein Albumin Globulin Albumin/Globulin Ratio Urine Color Urine Clarity Urine pH Ur Specific [place] Urine Protein Urine Glucose (UA) Urine Ketones Urine Occult Blood Urine Nitrite Urine Bilirubin Urine Urobilinogen Ur Leukocyte Esterase Urine RBC Urine WBC Ur Squamous Epith Cells Ur Transition Epith Cell Calcium Oxalate Crystal Urine Bacteria Urine Mucus Clinical Impression(s) from Imaging Studies Chest X-Ray 07/14/18 23:15 IMPRESSION: Endotracheal tube and nasogastric/orogastric tubes in their expected locations. Stable mild cardiomegaly. Lungs are clear. Electronically Signed: Hang Valdez MD at 1:35 EDT , Service support , KUB X-Ray 07/15/18 03:20 IMPRESSION: No significant change in appearance of distended colon. Electronically Signed: Hang Valdez MD at 5:36 EDT , Service support , Assessment/Plan RECOMMENDATIONS: 1. Continue Levophed and vasopressin in an attempt to maintain a mean arterial pressure at or above 65 mmHg. 2. Continue broad-spectrum antimicrobial coverage, pending infectious work-up. 3. If aggressive measures are wished to be continued, will place central venous catheter. 4. CODE STATUS discussion with family. IMPRESSIONS: 1. Septic shock Clinical concern for aspiration pneumonia, cystitis and high volume stool output, which could reflect underlying infectious colitis. The patient was adequately volume resuscitated. Unfortunately, he is in refractory septic shock and requiring 2 vasopressors to maintain hemodynamic stability. Broad-spectrum antimicrobial therapy is currently being continued. Infectious work-up is currently underway. 2. Acute hypoxemic and hypercarbic respiratory failure Likely secondary to acute aspiration event. The patient is currently intubated and mechanically ventilated. We will plan to check a repeat arterial blood gas this morning. Continue to wean FiO2 and PEEP as tolerated. Continue broad-spectrum antibiotics to cover for potential aspiration pneumonia. 3. Acute kidney injury/hyperkalemia Likely prerenal in etiology and related to #1. Continue current supportive measures with vasopressor support. Continue to monitor urine output. No indication for renal replacement therapy at this time. 4. Encephalopathy Likely multifactorial in etiology with underlying infectious process and residual deficits from recent catastrophic CVA contributing. We will need to clarify with the patient's family exactly what the patient's baseline mentation was like. If the patient was previously noted to be more alert and interactive, will need to consider CT head. Continue to withhold all sedating medications for now. 5. Recent catastrophic CVA/paroxysmal atrial fibrillation/history of colon cancer/hypertension/diabetes/history of heart failure Complicates care, management, recovery and prognosis. I did meet with the patient's family this morning at the bedside, who indicated that they would like to pursue palliative withdrawal of life support upon arrival of additional family members. UPDATE: At approximately 0935, the patient was palliatively extubated with family at the bedside. Prior to removal of the patients endotracheal tube, he was medicated with IV morphine and Ativan. All Vasopressors were subsequently discontinued. Family was present at the bedside. TIME: 45 minutes of critical care time, independent of procedures, was spent addressing the patient's septic shock, acute respiratory failure, acute kidney injury, encephalopathy, review of all data and collaboration with the care team. ([id number]) Code Visit 9xxxx: [id number] Critical care first hour
--- NOTE | 2018-07-15 08:06 | PCM.HOSP.N ---
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 fib with RVR from TCU. Patient had rapid response and tissue and therefore transferred to ER and got further admitted in ICU Patient had recent rapid deterioration in health with acute CVA secondary to large proximal right M1 occlusion leading to weakness and respiratory failure for which he was transferred to [facility] for potential embolectomy but he was not a candidate for intervention and therefore was managed conservatively. He also had cerebral edema and increased intracranial pressure for which had decompression craniectomy. He had aspiration pneumonia there too was treated. Currently, the patient is on life support on mechanical ventilator,on 2 vasopressor levophed and vasopressin. Family members are within the room for grieving. They are waiting for more family members to come and then elective withdrawal of life support and extubation. Discussed with family members and offered any help if they need. Clinical Impression(s) from Imaging Studies Chest X-Ray 07/14/18 23:15 IMPRESSION: Endotracheal tube and nasogastric/orogastric tubes in their expected locations. Stable mild cardiomegaly. Lungs are clear. KUB X-Ray 07/15/18 03:20 IMPRESSION: No significant change in appearance of distended colon.
--- NOTE | 2018-07-15 08:13 | CCHN_ITS ---
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 fib with RVR from TCU. Patient had rapid response and tissue and therefore transferred to ER and got further admitted in ICU Patient had recent rapid deterioration in health with acute CVA secondary to large proximal right M1 occlusion leading to weakness and respiratory failure for which he was transferred to [facility] for potential embolectomy but he was not a candidate for intervention and therefore was managed conservatively. He also had cerebral edema and increased intracranial pressure for which had decompression craniectomy. He had aspiration pneumonia there too was treated. Currently, the patient is on life support on mechanical ventilator,on 2 vasopressor levophed and vasopressin. Family members are within the room for grieving. They are waiting for more family members to come and then elective withdrawal of life support and extubation. Discussed with family members and offered any help if they need. Clinical Impression(s) from Imaging Studies Chest X-Ray 07/14/18 23:15 IMPRESSION: Endotracheal tube and nasogastric/orogastric tubes in their expected locations. Stable mild cardiomegaly. Lungs are clear. KUB X-Ray 07/15/18 03:20 IMPRESSION: No significant change in appearance of distended colon.
--- NOTE | 2018-07-15 09:04 | NURSING ---
Family states that once all family is present they are going to withdraw care.
[2018-07-15] MEDS: Morphine 4 MG/ML Syringe IV ×3 (09:29→10:48)
[2018-07-15] MEDS: LORazepam 2 MG/ML Syringe IV ×4 (09:29→11:20)
--- NOTE | 2018-07-15 09:35 | NURSING ---
Pt terminally extubated by respiratory. Morphine and Ativan given prior to extubation. Dr Flores present. Family also present.
[2018-07-15] MEDS: Atropine Sulfate 1% 2 ml Bottle 4 DRP PO (09:56)
[2018-07-15] MEDS: 0.9% NaCl Peripheral Flush Adult/Peds IV ×3 (10:02→10:48)
--- NOTE | 2018-07-15 11:47 | NURSING ---
Pt apneic & asystolic on monitor. Responded to bedside w/Yudelka RN. No pulse, no respirations. Multiple family members at bedside. Dr Flores & Dr Garcia notified.
[2018-07-15 14:46] LABS: Pathologist Review Reviewed
--- NOTE | 2018-07-15 16:22 | PCM.DEATH ---
Preliminary Cause of Refractory septic shock secondary to aspiration pneumonia Date of Admission: 07/15/18 Date of : 07/15/18 - Principle Diagnosis Refractory septic shock secondary to aspiration pneumonia Acute hypoxic and hypercarbic respiratory failure Acute kidney injury with hyperkalemia Paroxysmal A. fib with RVR Encephalopathy seems acute on chronic as patient had large right MCA ischemic stroke with surgical decompression for increased intracranial pressure and cerebral edema Problem List: paroxysmal A. fib with RVR, history of colon cancer, hypertension, DM, type II and chronic systolic heart failure, large right MCA stroke with cerebral edema and high intracranial pressure status post decompression craniectomy Hospital Course This is a 78-year-old gentleman with multiple comorbidities including recent large proximal right MCA ischemic infarct with right M1 occlusion for which was transferred to [facility] but was deemed not candidate for endovascular intervention. After that, it was complicated with severe cerebral edema with increased intracranial pressure for which she required hemicraniectomy for decompression. He further had septic shock due to aspiration pneumonia and then later on transfer to TCU. This time he is being admitted from TCU for respiratory failure secondary to aspiration as he is on tube feed. Patient was found hypoxic, tachypneic and had rapid response. Patient was also noted to be A. fib with RVR and then transferred to ER where he was intubated. Was found to be in septic shock. Patient was admitted in ICU on ventilator, broad-spectrum antibiotics and vasopressor support, IV Levophed and vasopressin. Diagnosis was reflective septic shock even on 2 vasopressors. In ICU, patient was seen by telephone diaphragm assembler. Family members did not want to pursue further life support or vasopressor and did not want central line. About 9:35 AM, the patient was palliatively extubated as previously planned elective withdrawal of life support when all the family members arrived. All vasopressors were discontinued. Patient DNR CC. Finally, patient at 1147. Cause of Refractory septic shock secondary to aspiration pneumonia Acute hypoxic and hypercarbic respiratory failure Acute kidney injury with hyperkalemia Encephalopathy seems acute on chronic as patient had large ischemic stroke with surgical decompression for increased intraocular pressure Other comorbidities include paroxysmal A. fib with RVR, history of colon cancer, hypertension, DM, type II and heart failure Code Visit Inpatient E&M: [id number] [facility]
--- NOTE | 2018-07-15 16:40 | EXP.PCM_ITS ---
Preliminary Cause of Refractory septic shock secondary to aspiration pneumonia Date of Admission: 07/15/18 Date of : 07/15/18 - Principle Diagnosis Refractory septic shock secondary to aspiration pneumonia Acute hypoxic and hypercarbic respiratory failure Acute kidney injury with hyperkalemia Paroxysmal A. fib with RVR Encephalopathy seems acute on chronic as patient had large right MCA ischemic stroke with surgical decompression for increased intracranial pressure and cerebral edema Problem List: paroxysmal A. fib with RVR, history of colon cancer, hypertension, DM, type II and chronic systolic heart failure, large right MCA stroke with cerebral edema and high intracranial pressure status post decompression craniectomy Hospital Course This is a 78-year-old gentleman with multiple comorbidities including recent large proximal right MCA ischemic infarct with right M1 occlusion for which was transferred to [facility] but was deemed not candidate for endovascular intervention. After that, it was complicated with severe cerebral edema with increased intracranial pressure for which she required hemicraniectomy for decompression. He further had septic shock due to aspiration pneumonia and then later on transfer to TCU. This time he is being admitted from TCU for respiratory failure secondary to aspiration as he is on tube feed. Patient was found hypoxic, tachypneic and had rapid response. Patient was also noted to be A. fib with RVR and then transferred to ER where he was intubated. Was found to be in septic shock. Patient was admitted in ICU on ventilator, broad-spectrum antibiotics and vasopressor support, IV Levophed and vasopressin. Diagnosis was reflective septic shock even on 2 vasopressors. In ICU, patient was seen by mud analysis well logging operator. Family members did not want to pursue further life support or vasopressor and did not want central line. About 9:35 AM, the patient was palliatively extubated as previously planned elective withdrawal of life support when all the family members arrived. All vasopressors were discontinued. Patient DNR CC. Finally, patient at 1147. Cause of Refractory septic shock secondary to aspiration pneumonia Acute hypoxic and hypercarbic respiratory failure Acute kidney injury with hyperkalemia Encephalopathy seems acute on chronic as patient had large ischemic stroke with surgical decompression for increased intraocular pressure Other comorbidities include paroxysmal A. fib with RVR, history of colon cancer, hypertension, DM, type II and heart failure Code Visit Inpatient E&M: [id number] [facility]
[2018-07-16 00:10] LABS: Absolute Nucleated RBC Count 0.04 10^3/uL (0-5); NRBC Flagged by Analyzer 0.4 % (0-5)
== END 2018-07-15 13:26 | DRG 871 ==
LOC: ED 23:58 → ICU 07-15 01:31
PROVIDERS: Internal Medicine Critical Care Medicine; Admitting Provider Hospitalist; Emergency Provider Emergency Medicine; Family Provider Family Medicine Geriatric Medicine; PCP Family Medicine Geriatric Medicine; Referring Provider Hospitalist; Visit Provider Internal Medicine
DX: A41.9 Sepsis, unspecified organism (principal); R65.21 Severe sepsis with septic shock; J96.02 Acute respiratory failure with hypercapnia; J96.01 Acute respiratory failure with hypoxia; J69.0 Pneumonitis due to inhalation of food and vomit; I69.354 Hemiplegia and hemiparesis following cerebral infarction affecting left non-dominant side; I50.22 Chronic systolic (congestive) heart failure; N17.9 Acute kidney failure, unspecified; G93.40 Encephalopathy, unspecified; N30.00 Acute cystitis without hematuria; I69.391 Dysphagia following cerebral infarction; R13.10 Dysphagia, unspecified; I11.0 Hypertensive heart disease with heart failure; E87.5 Hyperkalemia; E11.9 Type 2 diabetes mellitus without complications; I48.0 Paroxysmal atrial fibrillation; Z66 Do not resuscitate; R40.2432 Glasgow coma scale score 3-8, at arrival to emergency department; Z90.49 Acquired absence of other specified parts of digestive tract; Z85.038 Personal history of other malignant neoplasm of large intestine
CPT/HCPCS: 31500; 31720; 36415; 36600; 71045; 74018; 80048; 80053; 81001; 82803; 83605; 84484; 85025; 85610; 85730; 87040; 87086; 87088; 93005; 94002; 94003; 94640; 99251; 99285; J7030; J7050; J7120; A4216; G0463; J3490